=== PATIENT | male | born 1960 | race Caucasian/White ===

== ENCOUNTER 2017-12-20 17:57 | Emergency (ER) | payer MEDICAID ==
[~2017-12-20] VITALS: Ht 182.9 cm; Wt 91.6 kg
[2017-12-20] MEDS ORDERED: WARF2TAB57 PO (18:02)
[2017-12-20] MEDS ORDERED: BENA20TA9 PO (18:02)
--- NOTE | 2017-12-20 18:10 | NUR ---
MEILZA LEVIN AT BEDSIDE FOR EVAL.
[2017-12-20 18:47] LABS: BASOPHILS # (AUTO) 0.1 /CMM (0.0-0.2); BASOPHILS % (AUTO) 1.1 % (0.0-2.0); EOSINOPHILS % (AUTO) 1.5 % (0.0-6.0); HEMATOCRIT 36 % (39-51); HEMOGLOBIN 11.9 g/dL (13.5-17.5); LYMPHOCYTES # (AUTO) 1.5 /CMM (0.8-4.8); LYMPHOCYTES % (AUTO) 29.7 % (20.0-44.0); MEAN CORPUSCULAR HEMOGLOBIN 31 PG (26.0-33.0); MEAN CORPUSCULAR HGB CONC 33 g/dl (31.0-36.0); MEAN CORPUSCULAR VOLUME 94 fL (80-96); MONOCYTES # (AUTO) 0.4 /CMM (0.1-1.30); MONOCYTES % (AUTO) 7.6 % (2.0-12.0); NEUTROPHILS # (AUTO) 2.8 /CMM (1.8-8.9); NEUTROPHILS % (AUTO) 60.1 % (43.0-81.0); PLATELET COUNT (AUTO) 205 /CMM (150-450); RDW COEFFICIENT OF VARIATION 15.2 (11.5-15.0); RED BLOOD CELL COUNT(AUTO) 3.84 MIL/uL (4.5-6.0); WHITE BLOOD COUNT (AUTO) 4.9 K/uL (4.3-11.0)
[2017-12-20 18:58] LABS: CALCIUM, SERUM 8.8 mg/dL (8.5-10.1); CREATININE 1.6 mg/dL (0.6-1.3); POTASSIUM 3.5 mmol/L (3.5-5.1)
[2017-12-20 19:04] LABS: INR 4.94 (0.85-1.15)
--- NOTE | 2017-12-20 19:31 | NUR ---
PT RETURN FROM CT.
[2017-12-20] MEDS ORDERED: PHYTONADIONE 5 MG TABLET ONE (19:48)
[2017-12-20] MEDS ORDERED: PHYTONADIONE 5 MG TABLET PO ONE (20:00)
--- NOTE | 2017-12-20 20:34 | NUR ---
pt ok to discharge per brian edwards. Patient discharged to home in stable condition. Written and verbal after care instructions given. Patient verbalizes understanding of instruction.Patient is awake and alert to self, day, and place. pt ambulatory with a steady gait with cane
[2017-12-20 20:42] VITALS: BP 121/74
== END 2017-12-20 20:36 | disposition home or self-care (01) ==
LOC: ER 17:58
DX: F10.129 Alcohol abuse with intoxication, unspecified (principal); R79.1 Abnormal coagulation profile; I10 Essential (primary) hypertension; Z95.2 Presence of prosthetic heart valve; Z60.2 Problems related to living alone; Z79.899 Other long term (current) drug therapy; Z79.01 Long term (current) use of anticoagulants; Y90.6 Blood alcohol level of 120-199 mg/100 ml
CPT/HCPCS: 36415; 70450; 74150; 80048; 85025; 85730; 99285; A4606; Z7610

== ENCOUNTER 2018-05-03 17:31 | Emergency (ER) | payer MEDICAID ==
[~2018-05-03] VITALS: Ht 170.2 cm; Wt 91.2 kg
[~2018-05-03 17:31] MED LIST: BENA20TA9 PO; WARF2TAB57 PO
--- NOTE | 2018-05-03 17:45 | NUR ---
PT BIB SELF. COMPLAINING OF HAVING FLU LIKE SYMPTOMS FOR 2 DAYS. NO SOB NOTED. NO ACUTE DISTRESS AT THIS TIME. AWAITING MD WATERS.
[2018-05-03] MEDS ORDERED: IV NS 0.9% 1,000 ML BAG IV ONE (18:00)
[2018-05-03 18:18] LABS: BASOPHILS % (AUTO) 1.1 % (0.0-2.0); EOSINOPHILS % (AUTO) 1.5 % (0.0-6.0); HEMATOCRIT 40 % (39-51); HEMOGLOBIN 13.1 g/dL (13.5-17.5); LYMPHOCYTES # (AUTO) 1.2 /CMM (0.8-4.8); MEAN CORPUSCULAR HGB CONC 33 g/dl (31.0-36.0); MEAN CORPUSCULAR VOLUME 93 fL (80-96); MONOCYTES # (AUTO) 0.5 /CMM (0.1-1.30); NEUTROPHILS # (AUTO) 2.9 /CMM (1.8-8.9); NEUTROPHILS % (AUTO) 62.4 % (43.0-81.0); PLATELET COUNT (AUTO) 156 /CMM (150-450); RED BLOOD CELL COUNT(AUTO) 4.26 MIL/uL (4.5-6.0); WHITE BLOOD COUNT (AUTO) 4.6 K/uL (4.3-11.0)
[2018-05-03 18:27] LABS: CALCIUM, SERUM 8.6 mg/dL (8.5-10.1); CREATININE 1.2 mg/dL (0.6-1.3); POTASSIUM 3.4 mmol/L (3.5-5.1)
[2018-05-03] MEDS ORDERED: ONDANSETRON HCL/PF 4 MG/2 ML VIAL IV ONE (18:30)
[2018-05-03] MEDS ORDERED: MORPHINE SULFATE INJ 10 MG/ML DISP.SYRIN IV ONE (18:30)
[2018-05-03 18:33] LABS: ALBUMIN 3.2 g/dL (3.4-5.0); BILIRUBIN,DIRECT 0.2 mg/dL (0.0-0.2); BILIRUBIN,TOTAL 0.5 mg/dL (0.2-1.0); TOTAL PROTEIN, SERUM 7.8 g/dL (6.4-8.2)
[2018-05-03] MEDS ORDERED: ONDANSETRON HCL/PF 4 MG/2 ML VIAL ONE (18:42)
[2018-05-03] MEDS ORDERED: MORPHINE SULFATE INJ 4 MG/ML DISP.SYRIN ONE (18:42)
[2018-05-03 18:57] LABS: ALCOHOL, BLOOD 129 mg/dL (0-0); B-TYPE NATRIURETIC PEPTIDE 305 PG/ML (0-125)
--- NOTE | 2018-05-03 19:04 | NUR ---
PT UNABLE TO URINATE AT THIS TIME. WILL TRY AGAIN.
[2018-05-03 19:16] LABS: APPEARANCE,URINE Clear (CLEAR); BILIRUBIN,URINE SMALL (NEGATIVE); BLOOD, URINE Negative Ery/uL (NEGATIVE); COLOR,URINE Yellow (YELLOW); KETONES,URINE 15 (NEGATIVE); LEUKOCYTE ESTERASE ,URINE Negative (NEGATIVE); NITRITE, URINE Negative (NEGATIVE); PH,URINE 5.5 (5.0-8.0); PROTEIN,URINE 100 mg/dl (NEGATIVE); UGLUCOSE Negative (NEGATIVE)
[2018-05-03 19:20] LABS: BACTERIA,URINE Rare /HPF (None Seen); RBC,URINE 0-2 /HPF (0-2); SQUAMOUS EPITHELIAL CELL,UR Few /HPF (None Seen); WBC,URINE 0-2 /HPF (0-3)
[2018-05-03] MEDS ORDERED: WARFARIN SODIUM 1 MG TABLET ONE (19:29)
[2018-05-03] MEDS ORDERED: WARFARIN SODIUM 1 MG TABLET PO ONE (19:30)
--- NOTE | 2018-05-03 19:30 | NUR ---
Patient discharged to home in stable condition. Written and verbal after care instructions given. Patient verbalizes understanding of instruction. IV removed. Catheter intact and site benign. Pressure and 4x4 applied to site. No bleeding noted. Pt ambulatory with a steady gait
[2018-05-03 19:53] VITALS: BP 138/82
== END 2018-05-03 19:53 | disposition home or self-care (01) ==
LOC: ER 17:35
DX: R05 Cough (principal); F10.129 Alcohol abuse with intoxication, unspecified; E87.6 Hypokalemia; R09.89 Other specified symptoms and signs involving the circulatory and respiratory systems; G89.29 Other chronic pain; M79.605 Pain in left leg; R79.1 Abnormal coagulation profile; R79.89 Other specified abnormal findings of blood chemistry; I10 Essential (primary) hypertension; F17.200 Nicotine dependence, unspecified, uncomplicated; I73.9 Peripheral vascular disease, unspecified; Z95.2 Presence of prosthetic heart valve; Z98.890 Other specified postprocedural states; Z60.2 Problems related to living alone; Z79.01 Long term (current) use of anticoagulants; Z79.899 Other long term (current) drug therapy; Z86.73 Personal history of transient ischemic attack (TIA), and cerebral infarction without residual deficits; Y90.6 Blood alcohol level of 120-199 mg/100 ml
CPT/HCPCS: 36415; 71045; 80048; 80076; 81001; 83605; 83880; 84484; 85025; 85730; 87040 ×2; 87086; 87804 ×2; 93005; 96374; 96375; 99284; A4606; G0480; J2270; J2405; J7030; Z7610; 81000-TC; 87400

== ENCOUNTER 2019-03-16 16:00 | Emergency (ER) | payer MEDICAID ==
[~2019-03-16] VITALS: Ht 170.2 cm; Wt 85.7 kg
--- NOTE | 2019-03-16 16:15 | NUR ---
BIB ra 58 YEAR OLD MALE found on street altered with etoh noted on breath Requesting INR level and med refill for coumadin; last dose 2days ago. ALERT TO TACTILE STIMULI. ALCOHOL NOTED ON PATIENT BREATH. SKIN INTACT, WAITING TO BE SEEN BY
[2019-03-16] MEDS ORDERED: Thiamine 100 MG in IV D5W 50 ML IV SCH (16:30)
[2019-03-16] MEDS ORDERED: IV NS 0.9% 500 ML BAG IV ONE (16:30)
--- NOTE | 2019-03-16 16:33 | NUR ---
THIAMINE MEDS ORDERED FROM PHARM
[2019-03-16 16:44] LABS: CALCIUM, SERUM 8.5 mg/dL (8.5-10.1); CREATININE 1.5 mg/dL (0.6-1.3); POTASSIUM 3.6 mmol/L (3.5-5.1)
[2019-03-16 16:45] LABS: BASOPHILS # (AUTO) 0.1 /CMM (0.0-0.2); BASOPHILS % (AUTO) 1.1 % (0.0-2.0); EOSINOPHILS % (AUTO) 1.9 % (0.0-6.0); HEMATOCRIT 38 % (39-51); HEMOGLOBIN 12.8 g/dL (13.5-17.5); LYMPHOCYTES # (AUTO) 1.7 /CMM (0.8-4.8); LYMPHOCYTES % (AUTO) 28.5 % (20.0-44.0); MEAN CORPUSCULAR HGB CONC 33 g/dl (31.0-36.0); MEAN CORPUSCULAR VOLUME 92 fL (80-96); MONOCYTES # (AUTO) 0.5 /CMM (0.1-1.30); NEUTROPHILS # (AUTO) 3.5 /CMM (1.8-8.9); NEUTROPHILS % (AUTO) 59.5 % (43.0-81.0); PLATELET COUNT (AUTO) 197 /CMM (150-450); RED BLOOD CELL COUNT(AUTO) 4.17 MIL/uL (4.5-6.0)
[2019-03-16 16:49] LABS: ALBUMIN 3.6 g/dL (3.4-5.0); BILIRUBIN,DIRECT 0.2 mg/dL (0.0-0.2); BILIRUBIN,TOTAL 0.4 mg/dL (0.2-1.0); TOTAL PROTEIN, SERUM 7.9 g/dL (6.4-8.2)
--- NOTE | 2019-03-16 17:07 | NUR ---
RECEIVED FROM [address] PT HAS INR OF 5.31. DR. ROBLES NOTIFIED
[2019-03-16 17:24] LABS: BAND % (MANUAL) 3 % (0.0-5.0); LYMPHOCYTES % (MANUAL) 26 % (16-48); MONOCYTES % (MANUAL) 11 % (0-11.0); NEUTROPHILS % (MANUAL) 60 (42-76)
[2019-03-16 18:01] VITALS: BP 114/56
--- NOTE | 2019-03-16 18:02 | NUR ---
PATIENT WITHOUT SIGNING PAPERWORK. JS STATED HE NEEDED TO GET HOME. HIS HOME IS "WIDE OPEN". MD MADE AWARE PATIENT LEFT AMA
== END 2019-03-16 18:03 | disposition left against medical advice (07) ==
LOC: ER 16:03
DX: F10.129 Alcohol abuse with intoxication, unspecified (principal); R79.1 Abnormal coagulation profile; I10 Essential (primary) hypertension; Z86.73 Personal history of transient ischemic attack (TIA), and cerebral infarction without residual deficits; Z98.890 Other specified postprocedural states; Z60.2 Problems related to living alone; Z79.899 Other long term (current) drug therapy; Z79.01 Long term (current) use of anticoagulants; Y90.7 Blood alcohol level of 200-239 mg/100 ml
CPT/HCPCS: 36415; 80048; 80076; 80307; 83690; 83735; 85025; 85730; 96365; 99283; J3411; J7040; J7060; G0480

== ENCOUNTER 2019-03-17 21:58 | Emergency (ER) | payer MEDICAID ==
[~2019-03-17] VITALS: Ht 170.2 cm; Wt 85.7 kg
--- NOTE | 2019-03-17 22:00 | NUR ---
PT BIBRA C/O ETOH. PT SLEEPING UPON ARRIVAL, AROUSABLE TO VOICE. PT RESPIRATIONS EVEN AND UNLABORED. PT PUT ON THE CVT TECH AND PULSE OX.
--- NOTE | 2019-03-18 02:17 | NUR ---
PT RESTING IN THE BED, NAD NOTED. WILL CONTINUE TO MONITOR.
--- NOTE | 2019-03-18 02:58 | NUR ---
PT ASLEEP, NO ACUTE DISTRESS NOTED, RESP EVEN AND UNLABORED. NO PAIN OR DISCOMFORT NOTED. CALL LIGHT WITHIN REACH WILL CONTINUE TO MONITOR PT.
--- NOTE | 2019-03-18 03:28 | NUR ---
PT AWAKE AND AXO4. PT AMBULATORY WITH STEADY GAIT.
--- NOTE | 2019-03-18 04:06 | NUR ---
Patient discharged to home in stable condition. Written and verbal after care instructions given. Patient verbalizes understanding of instruction.
[2019-03-18 04:08] VITALS: BP 110/68
== END 2019-03-18 04:09 | disposition home or self-care (01) ==
LOC: ER 21:59
DX: F10.129 Alcohol abuse with intoxication, unspecified (principal); I10 Essential (primary) hypertension; Z86.73 Personal history of transient ischemic attack (TIA), and cerebral infarction without residual deficits; Z98.890 Other specified postprocedural states; Z60.2 Problems related to living alone; Z79.01 Long term (current) use of anticoagulants; Z79.899 Other long term (current) drug therapy; Y90.9 Presence of alcohol in blood, level not specified

== ENCOUNTER 2019-06-14 16:32 | Emergency (ER) | payer MEDICAID ==
[~2019-06-14] VITALS: Ht 170.2 cm; Wt 86.2 kg
[2019-06-14 16:32] VITALS: BP 145/84
--- NOTE | 2019-06-14 19:18 | NUR ---
pt called to rm, no answer.
--- NOTE | 2019-06-14 19:43 | NUR ---
2nd call for pt, no answer.
--- NOTE | 2019-06-14 20:01 | NUR ---
3RD CALL FOR PT, NO ANSWER. PT LWBS.
== END 2019-06-14 20:03 | disposition left against medical advice (07) ==
LOC: ER 16:43
DX: M79.605 Pain in left leg (principal); M79.604 Pain in right leg; Z53.21 Procedure and treatment not carried out due to patient leaving prior to being seen by health care provider

== ENCOUNTER 2021-10-12 19:14 | Inpatient (IN) | payer MEDICAID ==
[~2021-10-12] VITALS: Ht 167.6 cm; Wt 51.3 kg
[2021-10-12] MEDS ORDERED: VANCOMYCIN 1 GM in IV D5W 250 ML IV ONE (19:30)
[2021-10-12] MEDS ORDERED: CEFEPIME 1 GM in IV D5W 50 ML IV ONE (19:30)
[2021-10-12] MEDS ORDERED: LABE200T5 GT (19:34)
[2021-10-12] MEDS ORDERED: LEVE500T9 GT (19:34)
[2021-10-12] MEDS ORDERED: MULT-447 GT (19:34)
[2021-10-12] MEDS ORDERED: FERR300L GT (19:34)
[2021-10-12] MEDS ORDERED: SENN-261 GT (19:34)
[2021-10-12] MEDS ORDERED: GUAI100S11 GT (19:34)
[2021-10-12] MEDS ORDERED: IPRA3AMP23 IH (19:34)
[2021-10-12] MEDS ORDERED: ONDA4TAB5 GT (19:34)
[2021-10-12] MEDS ORDERED: ZINC220T3 GT (19:34)
[2021-10-12] MEDS ORDERED: ACET-868 GT (19:34)
[2021-10-12] MEDS ORDERED: DOCU50LI GT (19:34)
[2021-10-12] MEDS ORDERED: ACET-2605 GT (19:34)
[2021-10-12] MEDS ORDERED: THIA100T74 GT (19:34)
[2021-10-12] MEDS ORDERED: AMLO-213 GT (19:34)
[2021-10-12] MEDS ORDERED: PYRI25TA3 GT (19:34)
[2021-10-12] MEDS ORDERED: AMIN30LI2 GT (19:34)
[2021-10-12] MEDS ORDERED: FAMO20TA8 GT (19:34)
[2021-10-12] MEDS ORDERED: OLAN2.5T3 GT (19:34)
[2021-10-12] MEDS ORDERED: CRAN425C6 GT (19:34)
[2021-10-12] MEDS ORDERED: HYDR-4209 GT (19:34)
[2021-10-12] MEDS ORDERED: GABA-532 GT (19:34)
[2021-10-12] MEDS ORDERED: ASCO-352 GT (19:34)
[2021-10-12] MEDS ORDERED: ISON300T27 GT (19:34)
[2021-10-12] MEDS ORDERED: ENOX40DI SQ (19:34)
[2021-10-12] MEDS ORDERED: MAGN400O6 GT (19:34)
[2021-10-12] MEDS ORDERED: HYDR-4303 GT (19:34)
--- NOTE | 2021-10-12 19:45 | NUR ---
RISHABH WORK COLLECTED SENT TO LAB
--- NOTE | 2021-10-12 19:56 | NUR ---
URINE COLLECTED SENT TO LAB
--- NOTE | 2021-10-12 19:56 | NUR ---
COVID SWAB COLLECTED SENT TO LAB
--- NOTE | 2021-10-12 19:57 | NUR ---
F/C INSERTED Fr 14, CLEAR YELLOW URINE OUTPUT 110CC
[2021-10-12 20:02] LABS: BILIRUBIN,URINE NEGATIVE (NEGATIVE); COLOR,URINE YELLOW (YELLOW); LEUKOCYTE ESTERASE ,URINE NEGATIVE (NEGATIVE); NITRITE, URINE NEGATIVE (NEGATIVE); PH,URINE 5.5 (5.0-8.0); PROTEIN,URINE 30 mg/dl (NEGATIVE); UGLUCOSE NEGATIVE (NEGATIVE); UROBILINOGEN,URINE 0.2 EU/dL (0.2)
--- NOTE | 2021-10-12 20:10 | NUR ---
DR GARRETT ON THE PHONE WITH YESSENIA, PATIENT'S SISTER
[2021-10-12 20:17] LABS: BACTERIA,URINE RARE /HPF (None Seen); RBC,URINE 0-2 /HPF (0-2); SQUAMOUS EPITHELIAL CELL,UR 0-2 /HPF (None Seen); URINE AMORPHOUS URATE Few /HPF (None Seen); WBC,URINE 0-2 /HPF (0-3)
[2021-10-12 20:17] LABS: BASOPHILS % (AUTO) 0.3 % (0.0-2.0); EOSINOPHILS % (AUTO) 0.1 % (0.0-6.0); HEMATOCRIT 28 % (39-51); HEMOGLOBIN 9.1 g/dL (13.5-17.5); LYMPHOCYTES # (AUTO) 0.8 K/uL (0.8-4.8); LYMPHOCYTES % (AUTO) 13.3 % (20.0-44.0); MEAN CORPUSCULAR HGB CONC 33 g/dl (31.0-36.0); MEAN CORPUSCULAR VOLUME 92 fL (80-96); MONOCYTES # (AUTO) 0.5 K/uL (0.1-1.30); MONOCYTES % (AUTO) 8.7 % (2.0-12.0); NEUTROPHILS # (AUTO) 4.4 K/uL (1.8-8.9); NEUTROPHILS % (AUTO) 77.6 % (43.0-81.0); PLATELET COUNT (AUTO) 212 K/uL (150-450); RED BLOOD CELL COUNT(AUTO) 3.04 MIL/uL (4.5-6.0); WHITE BLOOD COUNT (AUTO) 5.7 K/uL (4.3-11.0)
[2021-10-12 20:25] LABS: ALANINE AMINOTRANSFERASE 37 U/L (12-78); ALBUMIN 2.2 g/dL (3.4-5.0); ALKALINE PHOSPHATASE 78 U/L (46-116); ASPARTATE AMINOTRANSFERASE 70 U/L (15-37); BILIRUBIN,DIRECT 0.2 mg/dL (0.0-0.2); BILIRUBIN,TOTAL 0.4 mg/dL (0.2-1.0); CALCIUM, SERUM 9.4 mg/dL (8.5-10.1); CARBON DIOXIDE 33 mmol/L (21-32); CHLORIDE 113 mmol/L (98-107); CREATININE 1.3 mg/dL (0.6-1.3); GLUCOSE 146 mg/dL (74-106); POTASSIUM 4.5 mmol/L (3.5-5.1); SODIUM SERUM 152 mmol/L (136-145); TOTAL PROTEIN, SERUM 8.4 g/dL (6.4-8.2); UREA NITROGEN, BLOOD 46 mg/dL (7-18)
[2021-10-12 20:33] LABS: ABG BASE EXCESS 5.6 mmol/L; ABG PCO2 45.2 mmHg (35.0-45.0); ABG PH 7.445 (7.350-7.450); ABG PO2 62.8 mmHg (75.0-100.0); COHb 0.3 % (0.5-1.5); MetHb 0.2 % (0.0-1.5); O2Hb 90.5 % (94.0-97.0); SITE, ABG Right Radial; VENT MODE, BG 15L NRB
[2021-10-12] MEDS ORDERED: KETAMINE HCL (500MG/10ML) 50 MG/ML VIAL ONE (20:43)
--- NOTE | 2021-10-12 20:50 | NUR ---
ORDER PER ER LAW ROCURONIUM 60 MG IVP ketamine 100 MG IVP CARRIED OUT
--- NOTE | 2021-10-12 20:52 | NUR ---
PT GOT INTUBATED BY DR GARRETT. CALLED FIELD SERVICE SPECIALIST FOR PICC LINE INSERTION.
--- NOTE | 2021-10-12 20:56 | NUR ---
RM 252
[2021-10-12] MEDS ORDERED: NOREPINEPHRINE 8 MG in IV NS 0.9% 250 ML IV ONE (21:00)
--- NOTE | 2021-10-12 21:08 | NUR ---
LEVO DRIP STARTED AT 0.03 ML/HR
--- NOTE | 2021-10-12 21:15 | NUR ---
rt at pt bedside for abg results. pt had high resp rate and decreased spo2 aloc. er nursing staff notified and pt ventilated via ambu bag. prepared for intubation per ER physician verbal order. pt intubated with 7.5 ett@24cm. positive color change, mist in the tube, bilateral chest rise. pt placed on ventalator on settings ac 22 500 100% +5. ett secured via anchorfast. suctioned a large amount of thick yellow secretions. Addendum: 10/13/21 at 0026 by ELE GAMBLE RT Amended: Links added.
--- NOTE | 2021-10-12 22:12 | NUR ---
REPORT GIVEN TO CHARGE NURSE
--- NOTE | 2021-10-12 22:50 | NUR ---
ORDER PER ER LAW ROCURONIUM 60 MG IVP ketamine 100 MG IVP CARRIED OUT
--- NOTE | 2021-10-12 23:11 | NUR ---
Miriam mary in [facility] - 10/12/21 at 2312 by GINI LAC 3.3 MD WILL BE NOTIFIED.
--- NOTE | 2021-10-12 23:12 | NUR ---
IBIS 3.3 MD WILL BE NOTIFIED.
--- NOTE | 2021-10-12 23:13 | NUR ---
JEAN-PAUL PELAEZ NP MADE AWARE OF THE LACTIC ACID LEVEL.
[2021-10-12] MEDS ORDERED: IV NS 0.9% 1,000 ML IV PRN (23:30)
[2021-10-12] MEDS ORDERED: ENOXAPARIN SODIUM 40 MG/0.4 ML DISP.SYRIN SQ SCH (23:30)
[2021-10-12] MEDS ORDERED: ONDANSETRON HCL/PF 4 MG/2 ML VIAL IVP PRN (23:30)
[2021-10-12] MEDS ORDERED: NOREPINEPHRINE 8 MG in IV NS 0.9% 242 ML IV PRN (23:30)
[2021-10-12] MEDS ORDERED: PROPOFOL 10MG/ML 50ML 50 ML IV PRN (23:30)
--- NOTE | 2021-10-12 23:45 | NUR ---
PATIENT TRANSFERRED UNDER ACLS, RN AND RT TRANSPORT,
[2021-10-13] VITALS (94 sets, daily range): BP systolic 69–126; BP diastolic 52–77
[2021-10-13] MEDS ORDERED: PIPERACILLIN /TAZOBACTAM 3.375 G VIAL IV ONE ×2 (00:18→05:32)
[2021-10-13] MEDS: LEVETIRACETAM SOL (5 ML) 100 MG/ML UDC GT SCH ×3 (00:23→20:03)
[2021-10-13] MEDS: ZOSYN IVPB 3.375 G in IV D5W 50ml IV SCH ×2 (00:23→05:52)
[2021-10-13 00:39] LABS: ABG BASE EXCESS 4.6 mmol/L; ABG OXYGEN SATURATION 92.1 % (92.0-98.5); ABG PCO2 48.6 mmHg (35.0-45.0); ABG PH 7.408 (7.350-7.450); ABG PO2 69.6 mmHg (75.0-100.0); AaDO2 594.8 mmHg; COHb 0.3 % (0.5-1.5); MetHb 0.3 % (0.0-1.5); O2Hb 91.5 % (94.0-97.0); PEEP,BG 5 cm H2O; SITE, ABG Right Radial; VENT MODE, BG AC 22 500 100% +5; VT, ABG 500 mL
[2021-10-13] MEDS: ACETAMINOPHEN 325 MG TABLET PO PRN ×2 (00:41→20:03)
[2021-10-13] MEDS ORDERED: NOREPINEPHRINE 8MG/250ML RTU 250 ML IV ONE (03:21)
[2021-10-13] MEDS: NOREPINEPHRINE 8 MG in IV NS 0.9% 242 ML IV PRN ×5 (04:03→20:04)
[2021-10-13 04:24] LABS: BASOPHILS % (AUTO) 0.1 % (0.0-2.0); HEMATOCRIT 28 % (39-51); HEMOGLOBIN 9.1 g/dL (13.5-17.5); LYMPHOCYTES # (AUTO) 0.6 K/uL (0.8-4.8); LYMPHOCYTES % (AUTO) 6.7 % (20.0-44.0); MEAN CORPUSCULAR HGB CONC 33 g/dl (31.0-36.0); MEAN CORPUSCULAR VOLUME 91 fL (80-96); MONOCYTES # (AUTO) 0.5 K/uL (0.1-1.30); MONOCYTES % (AUTO) 5.8 % (2.0-12.0); NEUTROPHILS # (AUTO) 7.9 K/uL (1.8-8.9); NEUTROPHILS % (AUTO) 87.4 % (43.0-81.0); PLATELET COUNT (AUTO) 232 K/uL (150-450); RED BLOOD CELL COUNT(AUTO) 3.03 MIL/uL (4.5-6.0); WHITE BLOOD COUNT (AUTO) 9.1 K/uL (4.3-11.0)
[2021-10-13 04:44] LABS: CREATININE 1.3 mg/dL (0.6-1.3); MAGNESIUM 2.3 mg/dL (1.8-2.4); PHOSPHORUS 3.7 mg/dL (2.5-4.9); POTASSIUM 4.2 mmol/L (3.5-5.1)
--- NOTE | 2021-10-13 07:30 | NUR ---
RN OPENING NOTE PT RECEIVED IN BED. PT IS ON MECHANICAL VENT WITH ALL PRESCRIBED SETTINGS TOLERATING WELL WITH NO SIGNS OF LABORED BREATHING OR DISTRESS SAT 100%. PT IS LETHARGIC AND IS NOT ON SEDATION AT THIS TIME AND HAS BILATERAL SOFT WRIST RESTRAINTS. GTUBE IS IN PLACE AND CLAMPED. FC IS IN PLACE DRAINING URINE TO GRAVITY. IV ACCESS L AC; R AC; R UA PICC DOUBLE LUMEN INFUSING WITH NS@75ML/HR AND LEVO @0.3MCG/HR. BED IS LOCKED IN LOWEST POSITION X2 BED RAILS UP AND ALL HOSPITAL SAFETY MEASURES ARE IN PLACE. WILL CONTINUE TO MONITOR THIS SHIFT.
[2021-10-13] MEDS ORDERED: ROCURONIUM BROMIDE 50 MG/5 ML IV ONE (08:25)
[2021-10-13] MEDS: ZINC SULFATE 220 MG CAPSULE PO SCH (08:38)
[2021-10-13] MEDS: ASCORBIC ACID 500 MG TABLET GT SCH (08:38)
[2021-10-13] MEDS: MULTIVITAMINS,THERAGRAN 1 UDTAB TABLET GT SCH (08:39)
[2021-10-13] MEDS: THIAMINE HCL 100 MG TABLET GT SCH (08:39)
[2021-10-13] MEDS: PANTOPRAZOLE 40 MG VIAL IV SCH (08:39)
[2021-10-13] MEDS: FERROUS SULFATE UDC 300 MG/5 ML UDC GT SCH (08:39)
[2021-10-13] MEDS: ISONIAZID (300 MG) 300 MG TABLET GT SCH (08:39)
[2021-10-13] MEDS: PYRIDOXINE HCL 50 MG TABLET PO SCH (08:39)
[2021-10-13] MEDS: DOCUSATE SODIUM LIQ 100 MG/10 ML UDC GT SCH (08:39)
[2021-10-13] MEDS: OLANZAPINE 2.5 MG TABLET GT SCH (08:39)
[2021-10-13] MEDS: PROSOURCE / PROSTAT (PYXIS) 30 ML UDC GT SCH (08:41)
[2021-10-13] MEDS: VANCOMYCIN 500 MG in IV D5W 100 ML IV SCH ×2 (09:03→21:53)
[2021-10-13] MEDS: ENOXAPARIN SODIUM 60 MG/0.6 ML DISP.SYRIN SQ SCH ×2 (09:08→20:04)
--- NOTE | 2021-10-13 09:08 | NUR ---
WOUND CARE CONSULT: PT UNSTABLE AT THIS TIME TO BE TURNED FOR SKIN ASSESSMENT. REVIEWED CHART, NURSING DOCUMENTATION AND PHOTOS WHICH INDICATE FOOT WOUNDS, RT HIP UNSTAGEABLE PRESSURE ULCER, LEFT HIP DEEP TISSUE INJURY IN EVOLUTION AND SACRAL DEEP TISSUE INJURY, ALL PRESENT ON ADMISSION. RECOMMENDATIONS MADE FOR SKIN PROTECTION. DISCUSSED WITH NURSING STAFF. PT IS ON GLENDA ISOFLEX LOW AIRLOSS BED. IN AGREEMENT WITH PLAN OF CARE. Addendum: 10/13/21 at 1028 [address] PINEDA WNDNU [address] MARADIAGA AND DR SANTIAGO NOTIFIED OF SURGICAL AND DPM CONSULT REQUESTS.
[2021-10-13] MEDS: IV NS 0.9% 250 ML IV PRN (09:25)
[2021-10-13] MEDS: Z GUARD REMEDY 4 OZ OINT TP SCH (09:30)
[2021-10-13] MEDS ORDERED: Z GUARD REMEDY 4 OZ OINT TP PRN (09:30)
[2021-10-13 10:14] LABS: ABG BASE EXCESS 4.2 mmol/L; ABG PCO2 34.6 mmHg (35.0-45.0); ABG PH 7.509 (7.350-7.450); ABG PO2 102.7 mmHg (75.0-100.0); AaDO2 142.7 mmHg; SITE, ABG Right Radial
[2021-10-13] MEDS: IV D5/0.45 NACL 1,000 ML IV PRN ×2 (10:44→23:47)
[2021-10-13] MEDS: PIPERACILLIN /TAZOBACTAM 3.375 G in IV D5W 100 ML IV SCH ×2 (11:05→19:02)
[2021-10-13] MEDS: PROPOFOL 100 ML IV PRN (12:24)
--- NOTE | 2021-10-13 12:24 | NUR ---
RN NOTE: SEDATION STARTED DIPRIVAN @5MCG/HR. PT AGITATED AND RR 30 AND TACHY. WILL CONTINUE TO MONITOR AND TITRATE PER PROTOCOL.
[2021-10-13] MEDS: JEVITY 1.2 CAL 1,000 ML BOTTLE GT PRN (16:54)
--- NOTE | 2021-10-13 19:12 | NUR ---
RN CLOSING NOTE PT IS IN BED AND ON MECHANICAL VENT WITH ALL PRESCRIBED SETTINGS TOLERATING WELL WITH NO SIGNS OF LABORED BREATHING OR DISTRESS SAT 98%. PT HAS BILATERAL SOFT WRIST RESTRAINTS. GTUBE IS IN PLACE INFUSING WITH JEVITY 1.2 @20ML/HR WITH GOAL OF 45ML/HR. FC IS IN PLACE DRAINING URINE TO GRAVITY -800ML. IV ACCESS L AC; R AC; R UA PICC DOUBLE LUMEN INFUSING WITH D5 1/2 NS@75ML/HR AND LEVO @0.1MCG/HR AND DIPRIVAN @10MCG/HR. BED IS LOCKED IN LOWEST POSITION X2 BED RAILS UP AND ALL HOSPITAL SAFETY MEASURES ARE IN PLACE. WILL ENDORSE TO CREDIT ADMINISTRATION SPECIALIST NURSE FOR SYBIL.
--- NOTE | 2021-10-13 19:50 | NUR ---
RT notes Pt received orally intubated w/ 7.5 ETT secured at 24cm at the lip line on [facility] vent on ordered settings AC mode, RR 18, VT 450, FIO2 30%, PEEP +5. No resp distress noted at this time. Airway patent and secured. CHEMICAL EDUCATOR done. Pt suctioned. Alarms set and audible. Vent plugged into red outlet. Ambubag at bedside. Will cont to monitor. Addendum: 10/13/21 at 2044 by EDGARDO GARCIA RT Amended: Links added.
[2021-10-13] MEDS ORDERED: ACETAMINOPHEN 650 MG/20.3 ML UDC NG ONE (20:30)
[2021-10-13] MEDS: SENNOSIDES 8.6 MG TABLET GT SCH (21:14)
[2021-10-14] VITALS (87 sets, daily range): BP systolic 84–145; BP diastolic 40–77
[2021-10-14] MEDS: PROPOFOL 100 ML IV PRN ×2 (03:29→17:56)
[2021-10-14] MEDS: PIPERACILLIN /TAZOBACTAM 3.375 G in IV D5W 100 ML IV SCH ×3 (03:30→19:09)
[2021-10-14] MEDS: ACETAMINOPHEN 325 MG TABLET PO PRN (03:46)
[2021-10-14 04:48] LABS: BASOPHILS % (AUTO) 0.2 % (0.0-2.0); EOSINOPHILS % (AUTO) 0.8 % (0.0-6.0); HEMATOCRIT 24 % (39-51); LYMPHOCYTES # (AUTO) 0.9 K/uL (0.8-4.8); LYMPHOCYTES % (AUTO) 10.1 % (20.0-44.0); MEAN CORPUSCULAR HGB CONC 33 g/dl (31.0-36.0); MEAN CORPUSCULAR VOLUME 93 fL (80-96); MONOCYTES # (AUTO) 0.5 K/uL (0.1-1.30); MONOCYTES % (AUTO) 6.1 % (2.0-12.0); NEUTROPHILS # (AUTO) 7.1 K/uL (1.8-8.9); NEUTROPHILS % (AUTO) 82.8 % (43.0-81.0); PLATELET COUNT (AUTO) 195 K/uL (150-450); WHITE BLOOD COUNT (AUTO) 8.6 K/uL (4.3-11.0)
[2021-10-14 05:19] LABS: MAGNESIUM 2.5 mg/dL (1.8-2.4); PHOSPHORUS 2.5 mg/dL (2.5-4.9); POTASSIUM 3.2 mmol/L (3.5-5.1)
--- NOTE | 2021-10-14 07:30 | NUR ---
RN OPENING NOTE PT IS IN BED AND ON MECHANICAL VENT WITH ALL PRESCRIBED SETTINGS TOLERATING WELL WITH NO SIGNS OF LABORED BREATHING OR DISTRESS SAT 98%. PT HAS BILATERAL SOFT WRIST RESTRAINTS. GTUBE IS IN PLACE INFUSING WITH JEVITY 1.2 @30ML/HR WITH GOAL OF 45ML/HR. FC IS IN PLACE DRAINING URINE TO GRAVITY. IV ACCESS L AC; R AC; R UA PICC DOUBLE LUMEN INFUSING WITH D5 1/2 NS@75ML/HR AND LEVO @0.1MCG/HR AND DIPRIVAN @20MCG/HR. BED IS LOCKED IN LOWEST POSITION X2 BED RAILS UP AND ALL HOSPITAL SAFETY MEASURES ARE IN PLACE. WILL CONTINUE TO MONITOR THIS SHIFT.
[2021-10-14] MEDS: NOREPINEPHRINE 8 MG in IV NS 0.9% 242 ML IV PRN (08:05)
[2021-10-14] MEDS: HYDROCORTISONE SOD SUCCINATE 100 MG/2 ML VIAL IV SCH ×3 (08:57→21:21)
[2021-10-14] MEDS: ISONIAZID (300 MG) 300 MG TABLET GT SCH (08:58)
[2021-10-14] MEDS: DOCUSATE SODIUM LIQ 100 MG/10 ML UDC GT SCH (08:58)
[2021-10-14] MEDS: OLANZAPINE 2.5 MG TABLET GT SCH (08:58)
[2021-10-14] MEDS: FERROUS SULFATE UDC 300 MG/5 ML UDC GT SCH (08:58)
[2021-10-14] MEDS: PANTOPRAZOLE 40 MG VIAL IV SCH (08:58)
[2021-10-14] MEDS: ZINC SULFATE 220 MG CAPSULE PO SCH (08:59)
[2021-10-14] MEDS: MULTIVITAMINS,THERAGRAN 1 UDTAB TABLET GT SCH (08:59)
[2021-10-14] MEDS: THIAMINE HCL 100 MG TABLET GT SCH (08:59)
[2021-10-14] MEDS: ASCORBIC ACID 500 MG TABLET GT SCH (08:59)
[2021-10-14] MEDS: LEVETIRACETAM SOL (5 ML) 100 MG/ML UDC GT SCH ×2 (08:59→21:21)
[2021-10-14] MEDS: PYRIDOXINE HCL 50 MG TABLET PO SCH (08:59)
[2021-10-14] MEDS: Z GUARD REMEDY 4 OZ OINT TP SCH (09:00)
[2021-10-14] MEDS: PROSOURCE / PROSTAT (PYXIS) 30 ML UDC GT SCH (09:01)
[2021-10-14] MEDS: POTASSIUM CHLORIDE 20 MEQ POWDER PACKET GT SCH ×2 (09:18→11:05)
[2021-10-14] MEDS: ENOXAPARIN SODIUM 60 MG/0.6 ML DISP.SYRIN SQ SCH ×2 (09:19→23:24)
[2021-10-14] MEDS: VANCOMYCIN 500 MG in IV D5W 100 ML IV SCH (09:20)
--- NOTE | 2021-10-14 12:54 | NUR ---
RN NOTE: MED SOLU-CORTEF SCHEDULED Q8H. LAST GIVEN AT 0900. PER PHARMACY, OK TO GIVE 1300 DOSE.
[2021-10-14] MEDS: IV D5/0.45 NACL 1,000 ML IV PRN (13:23)
[2021-10-14] MEDS: VANCOMYCIN 0.75 GM in IV D5W 250 ML IV SCH (17:10)
[2021-10-14] MEDS: MUPIROCIN OINT 2% 22 GM TUBE TP SCH (17:30)
[2021-10-14] MEDS ORDERED: VANCOMYCIN 0.75 GM in IV D5W 250 ML IV SCH (18:00)
[2021-10-14] MEDS: JEVITY 1.2 CAL 1,000 ML BOTTLE GT PRN (18:06)
--- NOTE | 2021-10-14 18:42 | NUR ---
RN CLOSING NOTE PT IS IN BED AND ON MECHANICAL VENT WITH ALL PRESCRIBED SETTINGS TOLERATING WELL WITH NO SIGNS OF LABORED BREATHING OR DISTRESS SAT 100%. PT HAS BILATERAL SOFT WRIST RESTRAINTS. GTUBE IS IN PLACE INFUSING WITH JEVITY 1.2 @30ML/HR WITH GOAL OF 45ML/HR. FC IS IN PLACE DRAINING URINE TO GRAVITY -800ML. IV ACCESS L AC; R AC; R UA PICC DOUBLE LUMEN INFUSING WITH D5 1/2 NS@75ML/HR AND LEVO @0.06MCG/HR AND DIPRIVAN @15MCG/HR. BED IS LOCKED IN LOWEST POSITION X2 BED RAILS UP AND ALL HOSPITAL SAFETY MEASURES ARE IN PLACE. WILL ENDORSE TO CULLED FRUIT PACKER NURSE FOR SYBIL.
--- NOTE | 2021-10-14 20:25 | NUR ---
LINUX DEVELOPER. INITIAL ASSESSMENT. RECEIVED THE PT REST IN BED. ORALLY INTUBATED. SEDATED WITH PROPOFOL. 15MCG/KG/MIN, LEVOPHED 0.06MCG/KG/MIN, JASEN SOFT WRIST RESTRAINT CHECKED AND RELEASED NO INJURY OR REDNESS NOTED. FC PATENT. IVF D5 1/2NS 75ML/H. HOB ELEVATYED. WILL CONTINUE TO MONITOR VITALS.
--- NOTE | 2021-10-14 20:53 | NUR ---
SPUTUM SAMPLE COLLECTED.
[2021-10-14] MEDS: SENNOSIDES 8.6 MG TABLET GT SCH (21:21)
[2021-10-15] VITALS (52 sets, daily range): BP systolic 63–148; BP diastolic 26–77
[2021-10-15] MEDS: IV D5/0.45 NACL 1,000 ML IV PRN ×2 (02:23→15:14)
--- NOTE | 2021-10-15 03:32 | NUR ---
agricultural chemist. am care given, remaining same vent settings tolerated well. sat 98%, no acute distress noted. drawing tracer showing nsr. iv rt upper arm picc line propofol 15mcg/kg/min, ivf d51/2ns @75ml/h. gt intact. feeding tolerated well. fc patent. urine draininh. hob elevated. turn and reposition q2h. will continue to monitor vitals
[2021-10-15] MEDS: IV NS 0.9% 250 ML IV PRN (04:35)
[2021-10-15] MEDS: HYDROCORTISONE SOD SUCCINATE 100 MG/2 ML VIAL IV SCH ×3 (04:36→20:25)
[2021-10-15] MEDS: PIPERACILLIN /TAZOBACTAM 3.375 G in IV D5W 100 ML IV SCH ×3 (04:36→20:15)
[2021-10-15] MEDS: PROPOFOL 100 ML IV PRN (05:15)
[2021-10-15] MEDS: MUPIROCIN OINT 2% 22 GM TUBE TP SCH ×2 (05:16→16:51)
[2021-10-15 05:18] LABS: BASOPHILS % (AUTO) 0.1 % (0.0-2.0); HEMATOCRIT 24 % (39-51); HEMOGLOBIN 7.7 g/dL (13.5-17.5); LYMPHOCYTES # (AUTO) 0.4 K/uL (0.8-4.8); LYMPHOCYTES % (AUTO) 6.4 % (20.0-44.0); MEAN CORPUSCULAR HGB CONC 33 g/dl (31.0-36.0); MEAN CORPUSCULAR VOLUME 93 fL (80-96); MONOCYTES # (AUTO) 0.2 K/uL (0.1-1.30); MONOCYTES % (AUTO) 3.1 % (2.0-12.0); NEUTROPHILS # (AUTO) 6.4 K/uL (1.8-8.9); NEUTROPHILS % (AUTO) 90.4 % (43.0-81.0); PLATELET COUNT (AUTO) 174 K/uL (150-450); RED BLOOD CELL COUNT(AUTO) 2.55 MIL/uL (4.5-6.0)
[2021-10-15] MEDS: VANCOMYCIN 0.75 GM in IV D5W 250 ML IV SCH ×2 (05:19→17:32)
[2021-10-15 05:40] LABS: ALBUMIN 1.7 g/dL (3.4-5.0); BILIRUBIN,TOTAL 0.3 mg/dL (0.2-1.0); TOTAL PROTEIN, SERUM 7.5 g/dL (6.4-8.2)
[2021-10-15 05:44] LABS: CALCIUM, SERUM 7.3 mg/dL (8.5-10.1); CREATININE 1.3 mg/dL (0.6-1.3); MAGNESIUM 1.8 mg/dL (1.8-2.4); PHOSPHORUS 1.6 mg/dL (2.5-4.9); POTASSIUM 4.1 mmol/L (3.5-5.1)
--- NOTE | 2021-10-15 07:10 | NUR ---
BILLET CHECKER Bedside report taken from [facility] nurse Dawna RASHID. pt sedated on propofol and intubated on ac vent setting with fio2 30%, pt tolerating well. cecelia lung sounds coarse. pt does not open eyes or follow commands but w/d to painful stimuli in bue and ble. perrla. pt NSR on monitor, bue and ble pulses present. pt has peg, site clean and dry. pt on jevity 1.2 @ 45 ml/hr tolerating well, residuals 0 ml. bowel sounds present. pt has eduardo intact and draining baldemar clear urine. pt has multiple wounds see chart for photos, dressings clean dry and intact. all lines traced. all drips verified. safety measures in place. will continue to monitor.
[2021-10-15] MEDS: ISONIAZID (300 MG) 300 MG TABLET GT SCH (08:09)
[2021-10-15] MEDS: DOCUSATE SODIUM LIQ 100 MG/10 ML UDC GT SCH (08:09)
[2021-10-15] MEDS: FERROUS SULFATE UDC 300 MG/5 ML UDC GT SCH (08:09)
[2021-10-15] MEDS: PROSOURCE / PROSTAT (PYXIS) 30 ML UDC GT SCH (08:10)
[2021-10-15] MEDS: LEVETIRACETAM SOL (5 ML) 100 MG/ML UDC GT SCH ×2 (08:10→20:25)
[2021-10-15] MEDS: MULTIVITAMINS,THERAGRAN 1 UDTAB TABLET GT SCH (08:11)
[2021-10-15] MEDS: ASCORBIC ACID 500 MG TABLET GT SCH (08:14)
[2021-10-15] MEDS: OLANZAPINE 2.5 MG TABLET GT SCH (08:14)
[2021-10-15] MEDS: PANTOPRAZOLE 40 MG VIAL IV SCH (08:14)
[2021-10-15] MEDS: PYRIDOXINE HCL 50 MG TABLET PO SCH (08:14)
[2021-10-15] MEDS: THIAMINE HCL 100 MG TABLET GT SCH (08:14)
[2021-10-15] MEDS: ZINC SULFATE 220 MG CAPSULE PO SCH (08:14)
[2021-10-15] MEDS: ENOXAPARIN SODIUM 60 MG/0.6 ML DISP.SYRIN SQ SCH (08:24)
[2021-10-15] MEDS: Z GUARD REMEDY 4 OZ OINT TP SCH (08:26)
--- NOTE | 2021-10-15 08:45 | NUR ---
FREIGHT CAR CLEANER DELTA SYSTEM Dr Meléndez at bedside assessing pt and updated on pt status. propofol weaned off for sedation vacation and vent weaning trial per protocol. willl continue to monitor.
--- NOTE | 2021-10-15 09:25 | NUR ---
PLACED ON SIMV MODE. PER MD ORDER. PT TOLERATING CHANGES, ALARMS SET AND AUDIBLE
--- NOTE | 2021-10-15 09:25 | NUR ---
DIRECTOR CHILD ABUSE THERAPY Propofol off pt placed on weaning trial. pt opens eyes, tolerating well. vitals stable. will continue to monitor.
--- NOTE | 2021-10-15 11:12 | NUR ---
ELECTRON BEAM PHOTO MASK MAKER Dr Meléndez at bedside assessing pt and updated on pt status. md aware that pt on weaning trial, pt tolerating well. Per md will not restart sedation, will keep pt on breathing trial, do abg if abg looks good will keep pt intubated for 1 more day til 10/16 and then reassess for extubation tomorrow.
--- NOTE | 2021-10-15 15:15 | NUR ---
PRESS SETUP OPERATOR Pt bathed and cleaned. linen change done. skin check done with charge nurse Maite RASHID, no new wounds noted. wound care and dressing changes done per protocol. pt tolerated well. vitals stable. safety measures in place. will continue to monitor.
[2021-10-15 15:40] LABS: ABG BASE EXCESS 0.8 mmol/L; ABG OXYGEN SATURATION 97.3 % (92.0-98.5); ABG PCO2 32.3 mmHg (35.0-45.0); ABG PH 7.488 (7.350-7.450); ABG PO2 95.7 mmHg (75.0-100.0); AaDO2 80.3 mmHg; COHb 0.7 % (0.5-1.5); MetHb 0.2 % (0.0-1.5); O2Hb 96.4 % (94.0-97.0); PEEP,BG 5 cm H2O; SITE, ABG Right Radial; VT, ABG 450 mL
[2021-10-15] MEDS ORDERED: NEUTRA PHOS 1 POWD.PACKET NG ONE (16:30)
--- NOTE | 2021-10-15 19:10 | NUR ---
RN OPENING NOTES RECEIVED PATIENT ON BED, ORALLY INTUBATED, ETT-7.5, LIP 26, ON MECHANICAL VENTILATOR, SETTINGS TOLERATED WELL, RESPIRATORY EVEN AND UNLABORED, NO SOB NOTED, NOT IN ACUTE DISTRESS. REMAIN AFEBRILE. NOTED WITH LAURA PICC LINE, RAC#20 AND LAC #20 SL, PATENT, INTACT. FLUSHED WITH NS, NO S/S OF INFILTRATION NOTED AT SITE. RUNNING WITH D5 1/2 NS @ 75 ML/HR. WITH PEG TUBE, PATENT INTACT, VERIFIED PLACEMENT BY AUSCULTATION, NO RESIDUAL NOTED UPON ASPIRATION, RUNNING WITH JEVITY 1.2 @ 45 ML/HR, HEAD OF BED KEPT ELEVATED. ON SAMS CATHETER PATENT, INTACT DRAINING WITH CLEAR YELLOW URINE VIA GRAVITY. WITH BILATERAL SOFT WRIST RESTRAIN. ALL SAFETY MEASURE PROVIDED. BED IN LOWEST POSITION, LOCKED. BED ALARM ARMED. CALL LIGHT WITH IN REACH. CONTINUE TO MONITOR.
--- NOTE | 2021-10-15 19:16 | NUR ---
UNIVERSITY RELATIONS DIRECTOR Bedside report given to [facility] nurse Yo RASHID. pt intubated, no sedation, easily arousable. all lines traced. all drips verified. safety measures in place. pt clean and dry. no signs of acute distress at this time. plan of care endorsed to [facility] nurse to keep pt on SBT as tolerated for reassessment and possible extubation in am per Dr Meléndez.
[2021-10-15] MEDS: SENNOSIDES 8.6 MG TABLET GT SCH (21:33)
[2021-10-15] MEDS: JEVITY 1.2 CAL 1,000 ML BOTTLE GT PRN (23:34)
[2021-10-16] VITALS (25 sets, daily range): BP systolic 109–166; BP diastolic 56–77
[2021-10-16] MEDS: PIPERACILLIN /TAZOBACTAM 3.375 G in IV D5W 100 ML IV SCH ×3 (03:55→20:05)
[2021-10-16 04:31] LABS: BASOPHILS % (AUTO) 0.1 % (0.0-2.0); HEMATOCRIT 22 % (39-51); HEMOGLOBIN 7.2 g/dL (13.5-17.5); LYMPHOCYTES # (AUTO) 0.4 K/uL (0.8-4.8); LYMPHOCYTES % (AUTO) 6.8 % (20.0-44.0); MEAN CORPUSCULAR HGB CONC 33 g/dl (31.0-36.0); MEAN CORPUSCULAR VOLUME 92 fL (80-96); MONOCYTES # (AUTO) 0.2 K/uL (0.1-1.30); MONOCYTES % (AUTO) 4.1 % (2.0-12.0); NEUTROPHILS # (AUTO) 4.6 K/uL (1.8-8.9); PLATELET COUNT (AUTO) 167 K/uL (150-450); RED BLOOD CELL COUNT(AUTO) 2.42 MIL/uL (4.5-6.0); WHITE BLOOD COUNT (AUTO) 5.2 K/uL (4.3-11.0)
[2021-10-16 04:48] LABS: ALBUMIN 1.6 g/dL (3.4-5.0); BILIRUBIN,TOTAL 0.2 mg/dL (0.2-1.0); CALCIUM, SERUM 8.4 mg/dL (8.5-10.1); CREATININE 0.8 mg/dL (0.6-1.3); PHOSPHORUS 2.7 mg/dL (2.5-4.9)
[2021-10-16] MEDS: HYDROCORTISONE SOD SUCCINATE 100 MG/2 ML VIAL IV SCH ×3 (05:28→20:34)
[2021-10-16] MEDS: MUPIROCIN OINT 2% 22 GM TUBE TP SCH ×2 (05:28→17:53)
[2021-10-16] MEDS: IV D5/0.45 NACL 1,000 ML IV PRN (05:44)
[2021-10-16] MEDS: VANCOMYCIN 0.75 GM in IV D5W 250 ML IV SCH ×2 (06:18→17:52)
--- NOTE | 2021-10-16 07:15 | NUR ---
RN NOTES PATIENT REMAIN STABLE THROUGH OUT THE SHIFT, ORALLY INTUBATED, ETT-7.5, LIP 26, ON MECHANICAL VENTILATOR, SETTINGS TOLERATED WELL, RESPIRATORY EVEN AND UNLABORED, NO SOB NOTED, NOT IN ACUTE DISTRESS. REMAIN AFEBRILE. RUNNING WITH D5 1/2 NS @ 75 ML/HR. WITH PEG TUBE, PATENT INTACT, RUNNING WITH JEVITY 1.2 @ 45 ML/HR, HEAD OF BED KEPT ELEVATED. ON SAMS CATHETER PATENT, INTACT DRAINING WITH CLEAR YELLOW URINE VIA GRAVITY. WITH BILATERAL SOFT WRIST RESTRAIN. ALL SAFETY MEASURE PROVIDED. BED IN LOWEST POSITION, LOCKED. BED ALARM ARMED. CALL LIGHT WITH IN REACH. REPORT GIVEN TO MORNING SHIFT NURSE.
--- NOTE | 2021-10-16 07:30 | NUR ---
OPENING NOTE: REPORT RECEIVED FROM IBAN RASHID. ORDERS AND LABS REVIEWED DURING REPORT. PT IS AWAKE WITHOUT SEDATION ON SIMV SINCE YESTERDAY. PLAN TODAY IS TO EXTUBATE VS COOL AEROSOL O2 WITH ETT STILL IN TO PROTECT AIRWAY. PT CHECKED ON HOURLY AND PRN BY NURSING STAFF.
[2021-10-16] MEDS: FERROUS SULFATE UDC 300 MG/5 ML UDC GT SCH (08:33)
[2021-10-16] MEDS: LEVETIRACETAM SOL (5 ML) 100 MG/ML UDC GT SCH ×2 (08:34→20:34)
[2021-10-16] MEDS: ZINC SULFATE 220 MG CAPSULE PO SCH (08:34)
[2021-10-16] MEDS: DOCUSATE SODIUM LIQ 100 MG/10 ML UDC GT SCH (08:34)
[2021-10-16] MEDS: PROSOURCE / PROSTAT (PYXIS) 30 ML UDC GT SCH (08:34)
[2021-10-16] MEDS: PANTOPRAZOLE 40 MG/PACK PACK NG SCH (08:34)
[2021-10-16] MEDS: ASCORBIC ACID 500 MG TABLET GT SCH (08:35)
[2021-10-16] MEDS: THIAMINE HCL 100 MG TABLET GT SCH (08:35)
[2021-10-16] MEDS: ISONIAZID (300 MG) 300 MG TABLET GT SCH (08:35)
[2021-10-16] MEDS: OLANZAPINE 2.5 MG TABLET GT SCH (08:35)
[2021-10-16] MEDS: PYRIDOXINE HCL 50 MG TABLET PO SCH (08:35)
[2021-10-16] MEDS: MULTIVITAMINS,THERAGRAN 1 UDTAB TABLET GT SCH (08:35)
[2021-10-16] MEDS: Z GUARD REMEDY 4 OZ OINT TP SCH (08:36)
[2021-10-16] MEDS: ENOXAPARIN SODIUM 60 MG/0.6 ML DISP.SYRIN SQ SCH ×2 (08:39→20:43)
[2021-10-16] MEDS ORDERED: ENOXAPARIN SODIUM 40 MG/0.4 ML DISP.SYRIN SQ SCH (09:00)
[2021-10-16] MEDS ORDERED: POTASSIUM CHLORIDE 20 MEQ POWDER PACKET GT SCH (09:00)
--- NOTE | 2021-10-16 10:10 | NUR ---
PT PLACED ON COOL AEROSOL 30% WITH ETT PER MD ORDERS AT THIS TIME TO PROTECT AIRWAY
[2021-10-16] MEDS: IV NS 0.9% 250 ML IV PRN (12:14)
--- NOTE | 2021-10-16 18:23 | NUR ---
END OF SHIFT NOTE: PER PREVIOUS NOTE, PT WAS PLACED ON A T-PIECE COOL AEROSOL 8L 35% AT 1010. PT CONTINUES TO BE ON THIS WITHOUT DIFFICULTY. PT HAD 2 LARGE LOOSE BM'S TODAY WITHIN AN HOUR OF EACH OTHER. TUBE FEEDING HELD FOR A FEW HOURS TO ALLOW PT'S STOMACH TO RELAX. WATER FLUSHES CONTINUE TO BE GIVEN PER MD ORDERS. IVF DC'D TODAY. PT HAD 1875 UOP THIS SHIFT. PT CHECKED ON HOURLY AND PRN BY NURSING STAFF.
--- NOTE | 2021-10-16 19:10 | NUR ---
RN OPENING NOTES RECEIVED PATIENT ON BED, ORALLY INTUBATED, ETT-7.5, LIP 26, ON COOL AEROSOL 35% @ 8LPM, RESPIRATORY EVEN AND UNLABORED, NO SOB NOTED, NOT IN ACUTE DISTRESS. REMAIN AFEBRILE. NOTED WITH LAURA PICC LINE, PATENT, INTACT. FLUSHED WITH NS, NO S/S OF INFILTRATION NOTED AT SITE. WITH PEG TUBE, PATENT INTACT, VERIFIED PLACEMENT BY AUSCULTATION, NO RESIDUAL NOTED UPON ASPIRATION, RUNNING WITH JEVITY 1.2 @ 45 ML/HR, HEAD OF BED KEPT ELEVATED. ON SAMS CATHETER PATENT, INTACT DRAINING WITH CLEAR YELLOW URINE VIA GRAVITY. WITH BILATERAL SOFT WRIST RESTRAIN. ALL SAFETY MEASURE PROVIDED. BED IN LOWEST POSITION, LOCKED. BED ALARM ARMED. CALL LIGHT WITH IN REACH. CONTINUE TO MONITOR.
[2021-10-16] MEDS: SENNOSIDES 8.6 MG TABLET GT SCH (21:51)
--- NOTE | 2021-10-16 21:51 | NUR ---
RN NOTES SENNA 8.6 2 TABS, HELD, PATIENT NOTED WITH LOOSE BOWEL MOVEMENT. NO S/S OF DEHYDRATION NOTED AT THIS TIME. CONTINUE TO MONITOR.
[2021-10-17] VITALS (24 sets, daily range): BP systolic 117–163; BP diastolic 52–82
[2021-10-17] MEDS: PIPERACILLIN /TAZOBACTAM 3.375 G in IV D5W 100 ML IV SCH ×3 (04:02→20:00)
[2021-10-17] MEDS: JEVITY 1.2 CAL 1,000 ML BOTTLE GT PRN (04:32)
[2021-10-17] MEDS: HYDROCORTISONE SOD SUCCINATE 100 MG/2 ML VIAL IV SCH ×3 (05:11→21:05)
[2021-10-17] MEDS: MUPIROCIN OINT 2% 22 GM TUBE TP SCH ×2 (05:12→17:38)
[2021-10-17 05:31] LABS: BASOPHILS % (AUTO) 0.1 % (0.0-2.0); HEMATOCRIT 22 % (39-51); HEMOGLOBIN 7.4 g/dL (13.5-17.5); LYMPHOCYTES # (AUTO) 0.5 K/uL (0.8-4.8); LYMPHOCYTES % (AUTO) 9.6 % (20.0-44.0); MEAN CORPUSCULAR HGB CONC 33 g/dl (31.0-36.0); MEAN CORPUSCULAR VOLUME 90 fL (80-96); MONOCYTES # (AUTO) 0.3 K/uL (0.1-1.30); MONOCYTES % (AUTO) 6.1 % (2.0-12.0); NEUTROPHILS # (AUTO) 4.6 K/uL (1.8-8.9); NEUTROPHILS % (AUTO) 84.2 % (43.0-81.0); PLATELET COUNT (AUTO) 188 K/uL (150-450); RED BLOOD CELL COUNT(AUTO) 2.49 MIL/uL (4.5-6.0); WHITE BLOOD COUNT (AUTO) 5.5 K/uL (4.3-11.0)
[2021-10-17] MEDS: VANCOMYCIN 0.75 GM in IV D5W 250 ML IV SCH ×2 (05:56→18:13)
[2021-10-17 06:00] LABS: ALBUMIN 1.7 g/dL (3.4-5.0); BILIRUBIN,TOTAL 0.5 mg/dL (0.2-1.0); CALCIUM, SERUM 8.4 mg/dL (8.5-10.1); CREATININE 0.7 mg/dL (0.6-1.3); MAGNESIUM 1.8 mg/dL (1.8-2.4); PHOSPHORUS 2.8 mg/dL (2.5-4.9); TOTAL PROTEIN, SERUM 6.9 g/dL (6.4-8.2)
[2021-10-17 06:19] LABS: POTASSIUM 2.8 mmol/L (3.5-5.1)
--- NOTE | 2021-10-17 06:30 | NUR ---
RN NOTES NOTIFIED HEATING ELEMENT WINDER INO PRAKASH REGARDING LATEST POTASSIUM LEVEL 2.8 WITH NEW ORDER POTASSIUM 40 MEQ POWDER GT Q 2HRS X 2 DOSE, POTASSIUM 20 MEQ IV, NOTED AND CARRIED OUT.
[2021-10-17] MEDS ORDERED: POTASSIUM CHLORIDE 20 MEQ POWDER PACKET GT SCH ×2 (07:00→09:00)
--- NOTE | 2021-10-17 07:23 | NUR ---
RN NOTES PATIENT REMAIN STABLE THROUGH OUT THE SHIFT, ORALLY INTUBATED, ETT-7.5, LIP 26, ON COOL AEROSOL 35% @ 8LPM, RESPIRATORY EVEN AND UNLABORED, NO SOB NOTED, NOT IN ACUTE DISTRESS. REMAIN AFEBRILE. WITH PEG TUBE, PATENT INTACT, RUNNING WITH JEVITY 1.2 @ 45 ML/HR, HEAD OF BED KEPT ELEVATED. ON SAMS CATHETER PATENT, INTACT DRAINING WITH CLEAR YELLOW URINE VIA GRAVITY. WITH BILATERAL SOFT WRIST RESTRAIN. ALL DUE MEDS GIVEN ORDERED. ALL SAFETY MEASURE PROVIDED. BED IN LOWEST POSITION, LOCKED. BED ALARM ARMED. CALL LIGHT WITH IN REACH. REPORT GIVEN TO MORNING SHIFT NURSE.
[2021-10-17] MEDS: POTASSIUM CL. PREMIX PERIPHER. 50 ML IV SCH ×2 (07:36→08:48)
[2021-10-17] MEDS: PANTOPRAZOLE 40 MG/PACK PACK NG SCH (07:36)
[2021-10-17] MEDS: LEVETIRACETAM SOL (5 ML) 100 MG/ML UDC GT SCH ×2 (09:00→21:05)
[2021-10-17] MEDS: FERROUS SULFATE UDC 300 MG/5 ML UDC GT SCH (09:01)
[2021-10-17] MEDS: OLANZAPINE 2.5 MG TABLET GT SCH (09:01)
[2021-10-17] MEDS: PYRIDOXINE HCL 50 MG TABLET PO SCH (09:01)
[2021-10-17] MEDS: THIAMINE HCL 100 MG TABLET GT SCH (09:01)
[2021-10-17] MEDS: ZINC SULFATE 220 MG CAPSULE PO SCH (09:02)
[2021-10-17] MEDS: ASCORBIC ACID 500 MG TABLET GT SCH (09:02)
[2021-10-17] MEDS: ISONIAZID (300 MG) 300 MG TABLET GT SCH (09:02)
[2021-10-17] MEDS: MULTIVITAMINS,THERAGRAN 1 UDTAB TABLET GT SCH (09:02)
[2021-10-17] MEDS: PROSOURCE / PROSTAT (PYXIS) 30 ML UDC GT SCH (09:06)
[2021-10-17] MEDS: DOCUSATE SODIUM LIQ 100 MG/10 ML UDC GT SCH (09:12)
[2021-10-17] MEDS: ENOXAPARIN SODIUM 60 MG/0.6 ML DISP.SYRIN SQ SCH ×2 (09:15→21:07)
[2021-10-17] MEDS: Z GUARD REMEDY 4 OZ OINT TP SCH (09:18)
[2021-10-17] MEDS: IV NS 0.9% 250 ML IV PRN (12:24)
--- NOTE | 2021-10-17 19:05 | NUR ---
BEDSIDE REPORT GIVEN TO RN-RICCO FOR CONTINUITY OF CARE. NO SIGNIFICANT CHANGES NOTED AT THIS TIME.
--- NOTE | 2021-10-17 20:00 | NUR ---
ICU NOTES Received patient awake not in acute distress.DX: Acute Respiratory Failure on T-piece 33% 8L/min. Secretions suctioned PRN still with moderate secretions.SR/SB 50's.Normotensive.GT feeding in progress maintained aspiration precaution HOB elevated.IVF NS at TKO infusing via LAURA PICC LINE site intact. FC to gravity.Turned and repositioned.Continue monitoring.
[2021-10-17] MEDS: SENNOSIDES 8.6 MG TABLET GT SCH (21:31)
[2021-10-18] VITALS (24 sets, daily range): BP systolic 116–149; BP diastolic 57–86
[2021-10-18] MEDS: PIPERACILLIN /TAZOBACTAM 3.375 G in IV D5W 100 ML IV SCH ×3 (04:00→20:00)
[2021-10-18 04:58] LABS: BASOPHILS % (AUTO) 0.1 % (0.0-2.0); HEMATOCRIT 24 % (39-51); HEMOGLOBIN 7.8 g/dL (13.5-17.5); LYMPHOCYTES # (AUTO) 0.6 K/uL (0.8-4.8); MEAN CORPUSCULAR HGB CONC 33 g/dl (31.0-36.0); MEAN CORPUSCULAR VOLUME 90 fL (80-96); MONOCYTES # (AUTO) 0.3 K/uL (0.1-1.30); MONOCYTES % (AUTO) 5.3 % (2.0-12.0); NEUTROPHILS # (AUTO) 4.7 K/uL (1.8-8.9); NEUTROPHILS % (AUTO) 84.6 % (43.0-81.0); PLATELET COUNT (AUTO) 189 K/uL (150-450); WHITE BLOOD COUNT (AUTO) 5.6 K/uL (4.3-11.0)
[2021-10-18 05:05] LABS: CALCIUM, SERUM 8.4 mg/dL (8.5-10.1); CREATININE 0.7 mg/dL (0.6-1.3); POTASSIUM 3.3 mmol/L (3.5-5.1)
[2021-10-18] MEDS: HYDROCORTISONE SOD SUCCINATE 100 MG/2 ML VIAL IV SCH ×3 (05:06→20:55)
[2021-10-18] MEDS: MUPIROCIN OINT 2% 22 GM TUBE TP SCH ×2 (05:07→16:35)
[2021-10-18] MEDS: VANCOMYCIN 1 GM in IV D5W 250ml IV SCH ×2 (05:31→17:04)
[2021-10-18] MEDS: JEVITY 1.2 CAL 1,000 ML BOTTLE GT PRN ×2 (05:38→21:50)
--- NOTE | 2021-10-18 06:15 | NUR ---
END NOTES Patient resting in no acute distress.SB 50'S. VS remains stable.Tolerating gt feedings well. All due medications administered.AM care done.Oral care done & secretions suctioned prn.Wound care done.Turned and repositioned.No significant change noted during the shift.
--- NOTE | 2021-10-18 07:00 | NUR ---
OPENING NOTES RECEIVED PATIENT ON BED, ORALLY INTUBATED, ON COOL AEROSOL 33% @ 8LPM, RESPIRATORY EVEN AND UNLABORED, NO SOB NOTED, NOT IN ACUTE DISTRESS. NOTED WITH LAURA PICC LINE, PATENT, INTACT. FLUSHED WITH NS, NO S/S OF INFILTRATION NOTED AT SITE. WITH PEG TUBE, PATENT INTACT, VERIFIED PLACEMENT BY AUSCULTATION, NO RESIDUAL NOTED UPON ASPIRATION, RUNNING WITH JEVITY 1.2 @ 45 ML/HR, HEAD OF BED KEPT ELEVATED. ON SAMS CATHETER PATENT, INTACT DRAINING WITH CLEAR YELLOW URINE VIA GRAVITY. ALL SAFETY MEASURE PROVIDED. BED IN LOWEST POSITION, LOCKED. BED ALARM on, CALL LIGHT WITHIN EASY REACH. CONTINUE TO MONITOR.
[2021-10-18] MEDS ORDERED: POTASSIUM CHLORIDE 20 MEQ POWDER PACKET GT SCH (08:00)
[2021-10-18] MEDS: ISONIAZID (300 MG) 300 MG TABLET GT SCH (08:24)
[2021-10-18] MEDS: ASCORBIC ACID 500 MG TABLET GT SCH (08:24)
[2021-10-18] MEDS: MULTIVITAMINS,THERAGRAN 1 UDTAB TABLET GT SCH (08:24)
[2021-10-18] MEDS: THIAMINE HCL 100 MG TABLET GT SCH (08:25)
[2021-10-18] MEDS: ZINC SULFATE 220 MG CAPSULE PO SCH (08:25)
[2021-10-18] MEDS: DOCUSATE SODIUM LIQ 100 MG/10 ML UDC GT SCH (08:25)
[2021-10-18] MEDS: LEVETIRACETAM SOL (5 ML) 100 MG/ML UDC GT SCH ×2 (08:25→20:55)
[2021-10-18] MEDS: FERROUS SULFATE UDC 300 MG/5 ML UDC GT SCH (08:25)
[2021-10-18] MEDS: OLANZAPINE 2.5 MG TABLET GT SCH (08:25)
[2021-10-18] MEDS: PYRIDOXINE HCL 50 MG TABLET PO SCH (08:25)
[2021-10-18] MEDS: ENOXAPARIN SODIUM 60 MG/0.6 ML DISP.SYRIN SQ SCH ×2 (08:27→20:56)
[2021-10-18] MEDS: Z GUARD REMEDY 4 OZ OINT TP SCH (08:29)
[2021-10-18] MEDS: PROSOURCE / PROSTAT (PYXIS) 30 ML UDC GT SCH (08:30)
[2021-10-18] MEDS: PANTOPRAZOLE 40 MG/PACK PACK NG SCH (08:30)
--- NOTE | 2021-10-18 12:00 | NUR ---
RN NOTES ET TUBE AND ORAL SUCTIONING DONE , MODERATED AMOUNT OF THICK WHITISH SECRETION NOTED.
--- NOTE | 2021-10-18 18:00 | NUR ---
RN NOTES PT REMAINS INTUBATED , ALERT , FOLLOWS SIMPLE COMMAND , FREQUENT ET AND ORAL SUCTIONING DONE, SAMS DRAINING TO GRAVITY, TF AT 45CC/HR RUNNING , R UPPER ARM PICC LINE SITE CLEAN ,DRY AND INTACT, SR UP x4, CALL LIGHT WITHIN EASY REACH, BED LOCKED AND IN LOWEST POSITION,WILL ENDORSE TO BOOKKEEPER ASSISTANT NURSE FOR CONTINUITY OF CARE .
[2021-10-18] MEDS: SENNOSIDES 8.6 MG TABLET GT SCH (21:06)
[2021-10-19] VITALS (24 sets, daily range): BP systolic 105–151; BP diastolic 59–103
--- NOTE | 2021-10-19 | NUR ---
GUT SNATCHER PT NOTED TO DESATURATE TO MID 40s WITH INCREASED HR TO 130s; PT SUCTIONED. CONTINUES TO HAVE LARGE AMOUNT OF SECRETIONS. PT REMAINED ALERT.
[2021-10-19] MEDS: PIPERACILLIN /TAZOBACTAM 3.375 G in IV D5W 100 ML IV SCH ×2 (03:00→11:33)
[2021-10-19 04:37] LABS: BASOPHILS % (AUTO) 0.2 % (0.0-2.0); HEMATOCRIT 25 % (39-51); HEMOGLOBIN 8.1 g/dL (13.5-17.5); LYMPHOCYTES # (AUTO) 0.5 K/uL (0.8-4.8); LYMPHOCYTES % (AUTO) 7.5 % (20.0-44.0); MEAN CORPUSCULAR HGB CONC 33 g/dl (31.0-36.0); MEAN CORPUSCULAR VOLUME 90 fL (80-96); MONOCYTES # (AUTO) 0.3 K/uL (0.1-1.30); MONOCYTES % (AUTO) 4.9 % (2.0-12.0); NEUTROPHILS # (AUTO) 6.2 K/uL (1.8-8.9); NEUTROPHILS % (AUTO) 87.4 % (43.0-81.0); PLATELET COUNT (AUTO) 217 K/uL (150-450); RED BLOOD CELL COUNT(AUTO) 2.73 MIL/uL (4.5-6.0); WHITE BLOOD COUNT (AUTO) 7.1 K/uL (4.3-11.0)
[2021-10-19] MEDS: HYDROCORTISONE SOD SUCCINATE 100 MG/2 ML VIAL IV SCH ×2 (04:51→12:29)
[2021-10-19] MEDS: MUPIROCIN OINT 2% 22 GM TUBE TP SCH ×2 (04:51→16:52)
[2021-10-19 05:09] LABS: CALCIUM, SERUM 8.5 mg/dL (8.5-10.1); CREATININE 0.7 mg/dL (0.6-1.3); PHOSPHORUS 2.7 mg/dL (2.5-4.9); POTASSIUM 3.5 mmol/L (3.5-5.1)
[2021-10-19] MEDS: VANCOMYCIN 1 GM in IV D5W 250ml IV SCH (06:00)
--- NOTE | 2021-10-19 07:00 | NUR ---
RN NOTES RECEIVED PATIENT ON BED, ORALLY INTUBATED, ON COOL AEROSOL 33% @ 8LPM, RESPIRATORY EVEN AND UNLABORED, NO SOB NOTED, NOT IN ACUTE DISTRESS. NOTED WITH LAURA PICC LINE, PATENT, INTACT. FLUSHED WITH NS, NO S/S OF INFILTRATION NOTED AT SITE. WITH PEG TUBE, PATENT INTACT, VERIFIED PLACEMENT BY AUSCULTATION, NO RESIDUAL NOTED UPON ASPIRATION, RUNNING WITH JEVITY 1.2 @ 45 ML/HR, HEAD OF BED KEPT ELEVATED. SAMS CATHETER PATENT, INTACT DRAINING WITH CLEAR YELLOW URINE VIA GRAVITY. ALL SAFETY MEASURE PROVIDED. BED IN LOWEST POSITION, LOCKED. BED ALARM ON, CALL LIGHT WITHIN EASY REACH. CONTINUE TO MONITOR.
[2021-10-19] MEDS: FERROUS SULFATE UDC 300 MG/5 ML UDC GT SCH (08:19)
[2021-10-19] MEDS: OLANZAPINE 2.5 MG TABLET GT SCH (08:19)
[2021-10-19] MEDS: PANTOPRAZOLE 40 MG/PACK PACK NG SCH (08:19)
[2021-10-19] MEDS: ENOXAPARIN SODIUM 60 MG/0.6 ML DISP.SYRIN SQ SCH ×2 (08:19→21:18)
[2021-10-19] MEDS: LEVETIRACETAM SOL (5 ML) 100 MG/ML UDC GT SCH ×2 (08:19→21:16)
[2021-10-19] MEDS: THIAMINE HCL 100 MG TABLET GT SCH (08:20)
[2021-10-19] MEDS: MULTIVITAMINS,THERAGRAN 1 UDTAB TABLET GT SCH (08:20)
[2021-10-19] MEDS: PYRIDOXINE HCL 50 MG TABLET PO SCH (08:20)
[2021-10-19] MEDS: ASCORBIC ACID 500 MG TABLET GT SCH (08:20)
[2021-10-19] MEDS: ZINC SULFATE 220 MG CAPSULE PO SCH (08:20)
[2021-10-19] MEDS: PROSOURCE / PROSTAT (PYXIS) 30 ML UDC GT SCH (08:20)
[2021-10-19] MEDS: ISONIAZID (300 MG) 300 MG TABLET GT SCH (08:20)
[2021-10-19] MEDS: Z GUARD REMEDY 4 OZ OINT TP SCH (08:24)
[2021-10-19] MEDS: DOCUSATE SODIUM LIQ 100 MG/10 ML UDC GT SCH (08:25)
--- NOTE | 2021-10-19 13:00 | NUR ---
RN NOTES ET TUBE AND ORAL SUCTIONING DONE , MODERATED AMOUNT OF THICK WHITISH SECRETION NOTED.
--- NOTE | 2021-10-19 18:00 | NUR ---
RN NOTES PT REMAINS INTUBATED , ALERT , FOLLOWS SIMPLE COMMAND , FREQUENT ET AND ORAL SUCTIONING DONE, SAMS DRAINING TO GRAVITY, TF AT 45CC/HR RUNNING , R UPPER ARM PICC LINE SITE CLEAN ,DRY AND INTACT, SR UP x3, CALL LIGHT WITHIN EASY REACH, BED LOCKED AND IN LOWEST POSITION,WILL ENDORSE TO WASTEWATER TECHNICIAN NURSE FOR CONTINUITY OF CARE
--- NOTE | 2021-10-19 19:26 | NUR ---
RN NOTE RECEIVED PATIENT IN BED, AWAKE, ABLE TO NOD YES OR NO TO SIMPLE QUESTIONS. BREATHING EVEN AND UNLABORED. PATIENT ON COOL AEROSOL AT 5L/MIN FIO2 OF 28%. TOLERATING WELL WITH OXYGEN SATURATION OF 100 PERCENT VIA BEDSIDE MONITOR WITH GOOD WAVEFORM. PATIENT IS PRODUCING MODERATE AMOUNT OF THIN WHITE MUCOUS ORALLY AND FROM ETT. HOB ELEVATED 40 DEGREES. SKIN IS WARM AND DRY TO TOUCH. NO BLEEDING AT THIS TIME. RIGHT UPPER ARM PICC LINE WITH INTACT DRESSING. PEG TUBE IN PLACE INFUSING JEVITY AT 45 CC/HR, ABOUT 10 CC OF RESIDUAL. INDWELLING SAMS CATHETER IN PLACE. INTACT, DRAINING YELLOW URINE BY GRAVITY. BILATERAL SOFT WRIST RESTRAINTS. RELEASED AND ASSISTED PATIENT WITH RANGE OF MOTION. REAPPLIED. RADIAL PULSES WNL. 2 FINGER SPACE OBSERVED. ASSISTED PATIENT WITH REPOSITIONING. BED LOW, IN LOCKED POSITION. CALL LIGHT WITHIN REACH. WILL CONTINUE TO MONITOR.
[2021-10-19] MEDS: SENNOSIDES 8.6 MG TABLET GT SCH (21:16)
[2021-10-19] MEDS: IV NS 0.9% 250 ML IV PRN (22:02)
[2021-10-20] VITALS (27 sets, daily range): BP systolic 115–155; BP diastolic 55–90
[2021-10-20] MEDS: JEVITY 1.2 CAL 1,000 ML BOTTLE GT PRN (04:06)
[2021-10-20 04:16] LABS: BASOPHILS % (AUTO) 0.2 % (0.0-2.0); EOSINOPHILS % (AUTO) 0.2 % (0.0-6.0); HEMATOCRIT 28 % (39-51); HEMOGLOBIN 9.1 g/dL (13.5-17.5); LYMPHOCYTES # (AUTO) 1.1 K/uL (0.8-4.8); LYMPHOCYTES % (AUTO) 15.8 % (20.0-44.0); MEAN CORPUSCULAR HGB CONC 33 g/dl (31.0-36.0); MEAN CORPUSCULAR VOLUME 90 fL (80-96); MONOCYTES # (AUTO) 0.3 K/uL (0.1-1.30); MONOCYTES % (AUTO) 4.7 % (2.0-12.0); NEUTROPHILS # (AUTO) 5.7 K/uL (1.8-8.9); NEUTROPHILS % (AUTO) 79.1 % (43.0-81.0); PLATELET COUNT (AUTO) 231 K/uL (150-450); RED BLOOD CELL COUNT(AUTO) 3.05 MIL/uL (4.5-6.0); WHITE BLOOD COUNT (AUTO) 7.2 K/uL (4.3-11.0)
[2021-10-20 04:22] LABS: CALCIUM, SERUM 8.7 mg/dL (8.5-10.1); CREATININE 0.7 mg/dL (0.6-1.3); POTASSIUM 3.4 mmol/L (3.5-5.1)
[2021-10-20] MEDS: MUPIROCIN OINT 2% 22 GM TUBE TP SCH ×2 (04:47→16:39)
--- NOTE | 2021-10-20 06:21 | NUR ---
RN NOTE NO SIGNIFICANT CHANGES. PATIENT TOLERATED COOL AEROSOL. OXYGEN SATURATION OF 100 PERCENT VIA BEDSIDE MONITOR WITH GOOD WAVEFORM. PATIENT SUCTIONED VIA ETT AND ORALLY. MODERATE AMOUNT OF THIN WHITE FLUIDS. HOB ELEVATED 35 DEGREES. ALL NEEDS ATTENDED. KEPT CLEAN AND DRY. BED LOW, IN LOCKED POSITION, CALL LIGHT WITHIN REACH.
--- NOTE | 2021-10-20 07:35 | NUR ---
RN OPENING NOTE RECEIVED PT IN BED RESTING, A/O 2, COOL AEROSOL SETTINGS SET ORDERED. TELE MONITOR READS SR. SAMS DRAINING CLEAR YELLOW URINE. JEVITY 1.2 AT 45CC HR. IV ACCESS NOTED AT [facility] PIC. ALL SAFETY MEASURES IN PLACE, WILL CONT TO MONITOR THROUGHOUT SHIFT.
[2021-10-20] MEDS ORDERED: POTASSIUM CHLORIDE 20 MEQ POWDER PACKET NG SCH (08:00)
[2021-10-20] MEDS: ZINC SULFATE 220 MG CAPSULE PO SCH (08:31)
[2021-10-20] MEDS: THIAMINE HCL 100 MG TABLET GT SCH (08:31)
[2021-10-20] MEDS: ASCORBIC ACID 500 MG TABLET GT SCH (08:31)
[2021-10-20] MEDS: ISONIAZID (300 MG) 300 MG TABLET GT SCH (08:31)
[2021-10-20] MEDS: PYRIDOXINE HCL 50 MG TABLET PO SCH (08:31)
[2021-10-20] MEDS: OLANZAPINE 2.5 MG TABLET GT SCH (08:31)
[2021-10-20] MEDS: MULTIVITAMINS,THERAGRAN 1 UDTAB TABLET GT SCH (08:31)
[2021-10-20] MEDS: PANTOPRAZOLE 40 MG/PACK PACK NG SCH (08:32)
[2021-10-20] MEDS: HYDROCORTISONE SOD SUCCINATE 100 MG/2 ML VIAL IV SCH (08:32)
[2021-10-20] MEDS: FERROUS SULFATE UDC 300 MG/5 ML UDC GT SCH (08:32)
[2021-10-20] MEDS: DOCUSATE SODIUM LIQ 100 MG/10 ML UDC GT SCH (08:32)
[2021-10-20] MEDS: PROSOURCE / PROSTAT (PYXIS) 30 ML UDC GT SCH (08:33)
[2021-10-20] MEDS: LEVETIRACETAM SOL (5 ML) 100 MG/ML UDC GT SCH ×2 (08:33→21:25)
[2021-10-20] MEDS: Z GUARD REMEDY 4 OZ OINT TP SCH (08:34)
[2021-10-20] MEDS: ENOXAPARIN SODIUM 60 MG/0.6 ML DISP.SYRIN SQ SCH ×2 (08:35→21:27)
--- NOTE | 2021-10-20 09:06 | NUR ---
RN NOTES DUE TO PT INTUBATED AND OFF PROPOFOL, TRIGLYCERIDE LABS ORDERED PER PHARMACY.
--- NOTE | 2021-10-20 09:36 | NUR ---
RN NOTES TRIGLYCERIDE LEVEL WNL 83.
[2021-10-20] MEDS ORDERED: DC PROPOFOL WHEN EXTUBATED XX PRN (10:00)
--- NOTE | 2021-10-20 12:33 | NUR ---
RN NOTES ORDER FOR EXTUBATION GIVEN BY DR. BRANTLEY, ORDERS ACKNOWLEDGED.
--- NOTE | 2021-10-20 12:57 | NUR ---
Pt extubated. On RA sating at 98%.
--- NOTE | 2021-10-20 12:57 | NUR ---
RT PER DR GODFREY ORDER PATIENT WAS EXTUBATED AND REMAINS ON ROOM AIR SPO2 99%. PATIENT AWAKE AND RESPONSIVE WITH NO COMPLAINTS OF SOB. RN AWARE.
[2021-10-20] MEDS: DAKINS QUARTER STRENGTH (0.125%) 480 ML BOTTLE TOP SCH (14:12)
--- NOTE | 2021-10-20 14:20 | NUR ---
Pt sating at 90% on ra. Pt on 2l via nc sating 96%. Addendum: 10/20/21 at 1421 by ALISSON VALERO RN "pt now on 2l via nc".
--- NOTE | 2021-10-20 18:49 | NUR ---
RN CLOSING NOTES PT IS RESTING IN BED A/O X 2-3. TELE MONITOR READS SR. SAMS DRAINING CLEAR YELLOW URINE. JEVITY 1.2 RUNNING AT 45 CC/HR. IV ACCESS ON LAURA PICC WITH NS TKO. PT EXTUBATED AND ON 2L VIA NC SATING AT 96%. ALL SAFETY MEASURES IN PLACE, BED IN LOWEST LOCKED POSITION, SR UP X 2, CALL LIGHT WITHIN REACH. WILL ENDORSE TO DENTAL RECEPTIONIST NURSE.
--- NOTE | 2021-10-20 19:43 | NUR ---
ETL ANALYST. INITIAL ASSESSMENT. RECEIVED THE PT REST IN BED. EXTUBATED TODAY. PT AWAKE, ALERT, FOLLOW SIMPLE COMMANDS. OXYGEN 2L VIA N/C. SAT 99%. NO ACUTE DISTRESS NOTED. STONE SETTER APPRENTICE SHOWING NSR. IV T UPPER ARM PICC LINE. TKO RUNNING. GT INTACT. JEVITY 45 ML/H. HOB ELEVATED. FC PATENT. WILL MONITOR VITALS.
[2021-10-20] MEDS: SENNOSIDES 8.6 MG TABLET GT SCH (21:26)
[2021-10-20] MEDS: IV NS 0.9% 250 ML IV PRN (21:29)
[2021-10-21] VITALS (32 sets, daily range): BP systolic 102–146; BP diastolic 56–83
[2021-10-21] MEDS: JEVITY 1.2 CAL 1,000 ML BOTTLE GT PRN (01:56)
--- NOTE | 2021-10-21 04:08 | NUR ---
AM CARE GIVEN. REMAINING SAME OXYGEN TOLERATED WELL. SAT 99%. 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 SALINE LOCK, GT FEEDING TOLERATYED WELL. HOB ELEVATED. FC PATENT URINE DRAINING. TURN AND REPOSITION Q2H. WILL CONTINUE TO MONITOR VITALS.
[2021-10-21 04:37] LABS: BASOPHILS % (AUTO) 0.2 % (0.0-2.0); EOSINOPHILS % (AUTO) 0.5 % (0.0-6.0); HEMATOCRIT 27 % (39-51); HEMOGLOBIN 8.9 g/dL (13.5-17.5); LYMPHOCYTES # (AUTO) 1.1 K/uL (0.8-4.8); LYMPHOCYTES % (AUTO) 14.8 % (20.0-44.0); MEAN CORPUSCULAR HGB CONC 34 g/dl (31.0-36.0); MEAN CORPUSCULAR VOLUME 89 fL (80-96); MONOCYTES # (AUTO) 0.2 K/uL (0.1-1.30); MONOCYTES % (AUTO) 2.6 % (2.0-12.0); NEUTROPHILS # (AUTO) 6.3 K/uL (1.8-8.9); NEUTROPHILS % (AUTO) 81.9 % (43.0-81.0); PLATELET COUNT (AUTO) 238 K/uL (150-450); RED BLOOD CELL COUNT(AUTO) 2.99 MIL/uL (4.5-6.0); WHITE BLOOD COUNT (AUTO) 7.7 K/uL (4.3-11.0)
[2021-10-21 04:45] LABS: CREATININE 0.7 mg/dL (0.6-1.3); PHOSPHORUS 2.3 mg/dL (2.5-4.9); POTASSIUM 3.2 mmol/L (3.5-5.1)
[2021-10-21] MEDS: MUPIROCIN OINT 2% 22 GM TUBE TP SCH (06:12)
--- NOTE | 2021-10-21 07:00 | NUR ---
RN NOTES RECEIVED PT ON BED, ALERT/ FOLLOWS SIMPLE COMMAND, ON 4L O2 N/C , O2 SAT WNL, PT HAS MODERATE AMOUNT OF THICK WHITISH, SECRETION , NT SUCTIONING DONE . ON TELE ST HR IN 100'S . SAMS DRANING TO GRAVITY, TF AT 45CC/HR RUNNING , IV SITE CLEAN, DRY AND INTACT, SR UP x3, CALL LIGHT WITH IN EASY REACH , BED LOCKED AND IN LOWEST POSITION, CONTINUE TO MONITOR.
[2021-10-21] MEDS ORDERED: POTASSIUM PHOSPHATE MM 15 MMOL in IV NS 0.9% 250 ML IV SCH (08:00)
[2021-10-21] MEDS: PANTOPRAZOLE 40 MG/PACK PACK NG SCH (08:11)
[2021-10-21] MEDS: ACETAMINOPHEN 325 MG TABLET PO PRN ×2 (08:12→21:09)
[2021-10-21] MEDS: ZINC SULFATE 220 MG CAPSULE PO SCH (08:12)
[2021-10-21] MEDS: PYRIDOXINE HCL 50 MG TABLET PO SCH (08:12)
[2021-10-21] MEDS: THIAMINE HCL 100 MG TABLET GT SCH (08:12)
[2021-10-21] MEDS: MULTIVITAMINS,THERAGRAN 1 UDTAB TABLET GT SCH (08:12)
[2021-10-21] MEDS: OLANZAPINE 2.5 MG TABLET GT SCH (08:12)
[2021-10-21] MEDS: ASCORBIC ACID 500 MG TABLET GT SCH (08:12)
[2021-10-21] MEDS: LEVETIRACETAM SOL (5 ML) 100 MG/ML UDC GT SCH ×2 (08:12→21:08)
[2021-10-21] MEDS: ISONIAZID (300 MG) 300 MG TABLET GT SCH (08:13)
[2021-10-21] MEDS: FERROUS SULFATE UDC 300 MG/5 ML UDC GT SCH (08:13)
[2021-10-21] MEDS: HYDROCORTISONE SOD SUCCINATE 100 MG/2 ML VIAL IV SCH (08:14)
[2021-10-21] MEDS: DOCUSATE SODIUM LIQ 100 MG/10 ML UDC GT SCH (08:14)
[2021-10-21] MEDS: ENOXAPARIN SODIUM 60 MG/0.6 ML DISP.SYRIN SQ SCH ×2 (08:14→21:08)
[2021-10-21] MEDS: DAKINS QUARTER STRENGTH (0.125%) 480 ML BOTTLE TOP SCH (08:15)
[2021-10-21] MEDS: Z GUARD REMEDY 4 OZ OINT TP SCH (08:15)
[2021-10-21] MEDS: PROSOURCE / PROSTAT (PYXIS) 30 ML UDC GT SCH (08:15)
[2021-10-21] MEDS ORDERED: POTASSIUM CHLORIDE 20 MEQ POWDER PACKET NG SCH (11:00)
--- NOTE | 2021-10-21 12:00 | NUR ---
RN NOTES PT STABLE, ORAL CARE DONE, NO DISTESS NOTED, CONTINUE TO MONITOR.
--- NOTE | 2021-10-21 18:30 | NUR ---
RN NOTES PT TRANSFERRED TO TELE BED, VIA ACLS PROTOCAL ,INSTABLE CONDITION, NO BELONGINGS, NOTED, WILL ENDORSE TO NIGHT NURSE FOR CONTINUITY OF CARE .
--- NOTE | 2021-10-21 19:30 | NUR ---
RN NOTES: RECEIVED PT IN BED AWAKE, ALERT/ORIENTED X2 AND VERBALLY RESPONSIVE. ON 2L VIA N/C AND PT TOLERATED WELL. IV ACCESS ON LAURA PICC INTACT AND PATENT. NO S/S OF ACTIVE BLEEDING NOTED. NO C/O PAIN OR DISCOMFORT. NO ACUTE DISTRESS. ON GTUBE FEEDING WELL TOLERATED WELL, JEVITY @45CC/HR. ALL SAFETY MEASURES IN PLACE. SIDE RAILS UP X3, BED IN LOWEST POSITION AND LOCKED. PLACE CALL LIGHT WITH IN REACH. WILL CONTINUE TO MONITOR
--- NOTE | 2021-10-21 20:30 | NUR ---
RN NOTES: NOTED PT WITH SWEATING, LETHARGIC, ASSESSED OXYGEN LEVEL. O2 SAT AT DECREASED TO 70% WITH 2L/MIN VIA N/C. APPLIED NON-BREATHER MASK WITH 15L/MIN. DEEP NASAL SUCTION DONE BY RT. NOTED THICK MODERATED AMOUNT OF WHITE SECRETIONS. O2 SAT INCREASED TO 94%. WILL CONTINUE TO MONITOR.
[2021-10-21] MEDS: SENNOSIDES 8.6 MG TABLET GT SCH (21:09)
--- NOTE | 2021-10-21 21:15 | NUR ---
RN NOTES: PT NOTED WITH FACIAL GRIMACING, C/O GENERALIZED BODY ACHE. TYLENOL 325 MG 2 TABS GIVEN PER PRN ORDERED VIA [facility]. PT TOLERATED WELL. WILL CONTINUE TO MONITOR
[2021-10-22] VITALS (25 sets, daily range): BP systolic 95–156; BP diastolic 53–86
[2021-10-22 06:38] LABS: BASOPHILS % (AUTO) 0.2 % (0.0-2.0); HEMATOCRIT 29 % (39-51); HEMOGLOBIN 9.3 g/dL (13.5-17.5); LYMPHOCYTES # (AUTO) 0.5 K/uL (0.8-4.8); LYMPHOCYTES % (AUTO) 2.1 % (20.0-44.0); MEAN CORPUSCULAR HGB CONC 33 g/dl (31.0-36.0); MEAN CORPUSCULAR VOLUME 90 fL (80-96); MONOCYTES # (AUTO) 0.4 K/uL (0.1-1.30); MONOCYTES % (AUTO) 1.5 % (2.0-12.0); NEUTROPHILS # (AUTO) 22.3 K/uL (1.8-8.9); NEUTROPHILS % (AUTO) 96.2 % (43.0-81.0); PLATELET COUNT (AUTO) 277 K/uL (150-450); RED BLOOD CELL COUNT(AUTO) 3.19 MIL/uL (4.5-6.0); WHITE BLOOD COUNT (AUTO) 23.2 K/uL (4.3-11.0)
--- NOTE | 2021-10-22 06:44 | NUR ---
RN CLOSING NOTES: PT IN BED BOTH EYE OPENED, ALERT/ORIENTED X2 AND VERBALLY RESPONSIVE. ON NON-REBREATHER MASK WITH 15L/MIN, O2 SAT 99%. IV ACCESS ON LAURA PICC INTACT AND PATENT. NO S/S OF ACTIVE BLEEDING NOTED. NO C/O PAIN OR DISCOMFORT. NO ACUTE DISTRESS. GTUBE FEEDING TOLERATED WELL WITH RUNNING JEVITY @45CC/HR. ALL DUE MEDS GIVEN ORDERED. SAMS CATHETER IN PLACE, RUNNING BY GRAVITY. ALL SAFETY MEASURES IN PLACE. SIDE RAILS UP X3, BED IN LOWEST POSITION AND LOCKED. PLACE CALL LIGHT WITH IN REACH. WILL ENDORSE TO MORNING SHIFT NURSE.
[2021-10-22 07:02] LABS: CALCIUM, SERUM 8.8 mg/dL (8.5-10.1); CREATININE 0.9 mg/dL (0.6-1.3); PHOSPHORUS 2.7 mg/dL (2.5-4.9)
[2021-10-22] MEDS: PANTOPRAZOLE 40 MG/PACK PACK NG SCH (08:09)
[2021-10-22] MEDS: FERROUS SULFATE UDC 300 MG/5 ML UDC GT SCH (09:07)
[2021-10-22] MEDS: ZINC SULFATE 220 MG CAPSULE PO SCH (09:08)
[2021-10-22] MEDS: LEVETIRACETAM SOL (5 ML) 100 MG/ML UDC GT SCH ×2 (09:08→20:02)
[2021-10-22] MEDS: DOCUSATE SODIUM LIQ 100 MG/10 ML UDC GT SCH (09:08)
[2021-10-22] MEDS: OLANZAPINE 2.5 MG TABLET GT SCH (09:09)
[2021-10-22] MEDS: MULTIVITAMINS,THERAGRAN 1 UDTAB TABLET GT SCH (09:09)
[2021-10-22] MEDS: HYDROCORTISONE SOD SUCCINATE 100 MG/2 ML VIAL IV SCH (09:09)
[2021-10-22] MEDS: ASCORBIC ACID 500 MG TABLET GT SCH (09:09)
[2021-10-22] MEDS: THIAMINE HCL 100 MG TABLET GT SCH (09:09)
[2021-10-22] MEDS: PYRIDOXINE HCL 50 MG TABLET PO SCH (09:09)
--- NOTE | 2021-10-22 09:30 | NUR ---
RN NOTES RECEIVED PT FROM TELE BED, PT IS DRAWZY, RESPONDS TO VERBAL STIMULI, PT IS DIAPHORETIC, ON 6L FACE MASK, O2 SAT WNL, HR IN 120'S . T-99.4, SAMS DRAINING TO GRAVITY, R UPPER ARM PICC LINE SITE CLEAN ,DRY AND INTACT, TF AT 45 CC /HR RUNNING, SR UP x3, CALL LIGHT WITHIN EASY REACH, BED LOCKED AND IN LOWEST POSITION, CONTINUE TO MONITOR.
[2021-10-22] MEDS: PROSOURCE / PROSTAT (PYXIS) 30 ML UDC GT SCH (09:48)
[2021-10-22] MEDS: DAKINS QUARTER STRENGTH (0.125%) 480 ML BOTTLE TOP SCH (09:49)
[2021-10-22] MEDS: ENOXAPARIN SODIUM 60 MG/0.6 ML DISP.SYRIN SQ SCH ×2 (09:49→20:03)
[2021-10-22] MEDS: Z GUARD REMEDY 4 OZ OINT TP SCH (09:50)
[2021-10-22] MEDS: ISONIAZID (300 MG) 300 MG TABLET GT SCH (09:51)
[2021-10-22] MEDS ORDERED: VANCOMYCIN 1 GM in IV D5W 250 ML IV ONE (11:00)
[2021-10-22] MEDS: ACETYLCYSTEINE 10% SOLN 400 MG/4 ML VIAL NEB SCH ×3 (11:20→23:14)
[2021-10-22] MEDS: JEVITY 1.2 CAL 1,000 ML BOTTLE GT PRN (11:31)
[2021-10-22] MEDS ORDERED: ZOSYN IVPB 4.5 G in IV D5W 50ml IV SCH (12:00)
[2021-10-22] MEDS: PIPERACILLIN /TAZOBACTAM 3.375 G in IV D5W 50 ML IV SCH ×3 (12:41→23:08)
[2021-10-22] MEDS: ACETAMINOPHEN 325 MG TABLET PO PRN (12:47)
--- NOTE | 2021-10-22 14:00 | NUR ---
RN NOTES ORAL AND MOUTH SUCTIONING DONE , PT ON 4L O2 N/C , CONTINUE TO MONITOR .
--- NOTE | 2021-10-22 18:16 | NUR ---
RN NOTES PT REMAINS ON 4L O2 N/C , ON TELE ST , HR IN 100'S, O2 SAT WNL, TF AT 45CC /HR RUNNING, NO RESIDUAL NOTED, NO SIGNFICANT CHANGES NOTED ON THIS SHIFT , WILL ENDORSE TO TRIMMING MACHINE OPERATOR NURSE FOR CONTINUITY OF CARE .
--- NOTE | 2021-10-22 19:17 | NUR ---
RN NOTE RECEIVED PATIENT IN BED, AWAKE AND VERBAL. ABLE TO ANSWER YES OR NO QUESTIONS. NO S/S OF DISTRESS AT THIS TIME. BREATHING EVEN AND UNLABORED. NOTED WITH OXYGEN SATURATION OF 94 PERCENT VIA BEDSIDE MONITOR WITH GOOD WAVEFORM. PATIENT IS CURRENTLY ON NASAL CANNULA AT 4L/MIN. ON TELE MONITORING. PATIENT DENIES CHEST PAIN. SKIN IS WARM AND DRY TO TOUCH. WOUND DRESSING ON BILATERAL HIPS/FEET INTACT. RIGHT UPPER ARM PICC LINE INFUSING NS AT 10CC/HR. BILATERAL SOFT WRIST RESTRAINTS. RELEASED TO ASSIST PATIENT WITH RANGE OF MOTION. REAPPLIED PATIENT IS HOLDING ON TO SAMS CATHETER. 2 FINGER SPACE OBSERVED. INDWELLING SAMS CATHETER IN PLACE. INTACT, DRAINI NG YELLOW URINE BY GRAVITY. ASSISTED WITH TURNING AND REPOSITIONING. BED LOW, IN LOCKED POSITION. CALL LIGHT WITHIN REACH, WILL CONTINUE TO MONITOR. Addendum: 10/22/21 at 1933 by MAKAYLA JAMES RN PEG TUBE INTACT. INFUSING JEVITY AT 55 ML/HR. Addendum: 10/22/21 at 1936 by MAKAYLA JAMES RN JEVITY DECREASED TO 45 PER DIETARY RECOMMENDATION. NO RESIDUAL VIA PEG. HOB ELEVATED 35 DEGREES.
[2021-10-22] MEDS: IV NS 0.9% 250 ML IV PRN (19:43)
[2021-10-22] MEDS: VANCOMYCIN 0.75 GM in IV D5W 250 ML IV SCH (20:00)
[2021-10-22] MEDS: SENNOSIDES 8.6 MG TABLET GT SCH (21:08)
[2021-10-23] VITALS (24 sets, daily range): BP systolic 97–137; BP diastolic 50–77
--- NOTE | 2021-10-23 02:00 | NUR ---
RN NOTE PATIENT WITH MODERATE CONGESTION. PATIENT WAS SUCTIONED VIA NASOPHARYNGEAL BY RT, MODERATE AMOUNT OF THICK WHITE/PINK SECRETIONS. PATIENT WAS ON 5L/MIN VIA NASAL CANNULA, O2 SATURATION OF 90-91 PERCENT. SWITCHED TO FACE MASK 10L/MIN WITH SATURATION OF 98%. TURNED AND REPOSITIONED. WILL CONTINUE TO MONITOR.
[2021-10-23 04:37] LABS: EOSINOPHILS % (AUTO) 0.1 % (0.0-6.0); HEMATOCRIT 26 % (39-51); HEMOGLOBIN 8.5 g/dL (13.5-17.5); LYMPHOCYTES # (AUTO) 0.3 K/uL (0.8-4.8); MEAN CORPUSCULAR HGB CONC 33 g/dl (31.0-36.0); MEAN CORPUSCULAR VOLUME 90 fL (80-96); MONOCYTES # (AUTO) 0.3 K/uL (0.1-1.30); MONOCYTES % (AUTO) 2.3 % (2.0-12.0); NEUTROPHILS # (AUTO) 13.8 K/uL (1.8-8.9); NEUTROPHILS % (AUTO) 95.6 % (43.0-81.0); PLATELET COUNT (AUTO) 219 K/uL (150-450); WHITE BLOOD COUNT (AUTO) 14.4 K/uL (4.3-11.0)
[2021-10-23 04:51] LABS: CALCIUM, SERUM 8.4 mg/dL (8.5-10.1); CREATININE 0.9 mg/dL (0.6-1.3); POTASSIUM 3.4 mmol/L (3.5-5.1)
[2021-10-23] MEDS: PIPERACILLIN /TAZOBACTAM 3.375 G in IV D5W 50 ML IV SCH ×3 (05:11→18:17)
--- NOTE | 2021-10-23 06:58 | NUR ---
WOUND CARE CONSULT: RECEIVED CONSULT FOR FOOT WOUNDS WHICH ARE DRY AND WERE NOTED TO BE PRESENT ON ADMISSION. WILL REQUEST PODIATRY RE-EVALUATION. FOAM DRESSINGS IN PLACE AT THIS TIME AND OFFLOADING WITH PILLOWS. DISCUSSED SKIN PROTECTION WITH NURSING STAFF. MD IN AGREEMENT WITH PLAN OF CARE.
[2021-10-23] MEDS: PANTOPRAZOLE 40 MG/PACK PACK NG SCH (07:32)
--- NOTE | 2021-10-23 07:39 | NUR ---
RN NOTE PT RECEIVED AWAKE IN BED, RESPONSIVE TO STIMULI. ON SIMPLE MASK @8L. TOLERATING WELL. WITH O2 SAT 90-97%. GT IN PLACE, WITH FEEDING JEVITY 1.2 @45//HR, ASPIRATION PREC FOLLOWED. SAMS CATH IN PLACE DRAINING WELL WITH CLEAR YELLOW URINE. LAURA PICC LINE WITH NS @ TKO SETTINGS. SAFETY MAINTAINED. WILL CONTINUE TO MONITOR.
[2021-10-23] MEDS: ACETAMINOPHEN 325 MG TABLET PO PRN (07:48)
[2021-10-23] MEDS: ACETYLCYSTEINE 10% SOLN 400 MG/4 ML VIAL NEB SCH ×3 (08:17→23:06)
[2021-10-23] MEDS: VANCOMYCIN 0.75 GM in IV D5W 250 ML IV SCH ×2 (08:24→22:08)
--- NOTE | 2021-10-23 08:25 | NUR ---
RN NOTE PT NOTED WITH AXILLARY TEMPT OF 101.5. COOLING MEASURES DONE AND PRN TYLENOL GIVEN. WILL MONITOR.
[2021-10-23] MEDS: ASCORBIC ACID 500 MG TABLET GT SCH (09:02)
[2021-10-23] MEDS: ZINC SULFATE 220 MG CAPSULE PO SCH (09:02)
[2021-10-23] MEDS: DOCUSATE SODIUM LIQ 100 MG/10 ML UDC GT SCH (09:02)
[2021-10-23] MEDS: PYRIDOXINE HCL 50 MG TABLET PO SCH (09:02)
[2021-10-23] MEDS: MULTIVITAMINS,THERAGRAN 1 UDTAB TABLET GT SCH (09:02)
[2021-10-23] MEDS: LEVETIRACETAM SOL (5 ML) 100 MG/ML UDC GT SCH ×2 (09:02→21:08)
[2021-10-23] MEDS: OLANZAPINE 2.5 MG TABLET GT SCH (09:03)
[2021-10-23] MEDS: FERROUS SULFATE UDC 300 MG/5 ML UDC GT SCH (09:03)
[2021-10-23] MEDS: ISONIAZID (300 MG) 300 MG TABLET GT SCH (09:03)
[2021-10-23] MEDS: THIAMINE HCL 100 MG TABLET GT SCH (09:03)
[2021-10-23] MEDS: PROSOURCE / PROSTAT (PYXIS) 30 ML UDC GT SCH (09:06)
[2021-10-23] MEDS: ENOXAPARIN SODIUM 60 MG/0.6 ML DISP.SYRIN SQ SCH ×2 (09:08→21:10)
[2021-10-23] MEDS: Z GUARD REMEDY 4 OZ OINT TP SCH (09:11)
--- NOTE | 2021-10-23 09:40 | NUR ---
RN NOTE PT TEMPT 99.5 ON R/C. WILL CONTINUE TO MONITOR,
--- NOTE | 2021-10-23 09:42 | NUR ---
RN NOTE RESPI TX DONE BY RT AND CHANGED O2 TO NC @ 6L. PT TOLERATING WELL WITH O2 SAT OF 97%. WILL CONTINUE TO MONITOR.
[2021-10-23] MEDS: DAKINS QUARTER STRENGTH (0.125%) 480 ML BOTTLE TOP SCH (09:44)
[2021-10-23] MEDS ORDERED: POTASSIUM CHLORIDE 20 MEQ POWDER PACKET GT SCH (10:00)
[2021-10-23] MEDS: JEVITY 1.2 CAL 1,000 ML BOTTLE GT PRN (13:27)
[2021-10-23] MEDS: IV NS 0.9% 250 ML IV PRN (17:03)
--- NOTE | 2021-10-23 18:51 | NUR ---
RN NOTE PT RESTING ASLEEP IN BED, RESPONSIVE TO STIMULI. ON O2 VIA NC @6L. TOLERATING WELL. WITH O2 SAT 95-100%. GT IN PLACE, WITH FEEDING JEVITY 1.2 @45//HR, ASPIRATION PREC FOLLOWED. SAMS CATH IN PLACE DRAINING WELL WITH CLEAR YELLOW URINE. LAURA PICC LINE WITH NS @ TKO SETTINGS. SAFETY MAINTAINED. WILL CONTINUE TO MONITOR. ALL DUE MEDS GIVEN. WOUND CARE DONE.
--- NOTE | 2021-10-23 20:00 | NUR ---
ICU NOTES Received patient resting in no acute distress.Dx: Acute Hypoxemic Respiratory Failure. Respiration even and unlabored continue on 6L NC saturation 100%.Moderate secretions suctioned PRN.VS stable.SRST.GT feeding in progress no residual noted.Maintained HOB elevated.FC to gravity.Turned and repositioned off loading pressure points.Continue monitoring.
[2021-10-23] MEDS: SENNOSIDES 8.6 MG TABLET GT SCH (21:09)
[2021-10-24] VITALS (28 sets, daily range): BP systolic 97–141; BP diastolic 36–76
[2021-10-24] MEDS: PIPERACILLIN /TAZOBACTAM 3.375 G in IV D5W 50 ML IV SCH ×5 (00:48→23:58)
[2021-10-24 05:21] LABS: CALCIUM, SERUM 8.4 mg/dL (8.5-10.1); CREATININE 0.7 mg/dL (0.6-1.3); POTASSIUM 3.3 mmol/L (3.5-5.1)
--- NOTE | 2021-10-24 06:30 | NUR ---
END NOTE Patient resting verbally responsive and follows simple commands.VSS.SR/ST.RT tried to titrate O2 down to 4LNC during the night but patient saturation down to 90% so back on 6LNC.Patient unable to expectorate sputum.Deep naso tracheal suctioning of secretions done several times by Jessica,RT obtained moderate amount.Patient tolerating GT feeding well.No residual noted.Bathed and complete linens changed.Oral care done.Wound care done.Due medications administered.Turned and repositioned off loading pressure points.NAD.
[2021-10-24] MEDS: ACETAMINOPHEN 325 MG TABLET PO PRN (07:41)
[2021-10-24] MEDS: PANTOPRAZOLE 40 MG/PACK PACK NG SCH (07:41)
--- NOTE | 2021-10-24 07:50 | NUR ---
RN OPENING NOTES RECEIVED PT IN BED A/O X 2. PT ON 6L VIA NC SATING AT 98%. TELE MONITOR READS ST. SAMS PATENT AND DRAINING CLEAR YELLOW URINE. GTUBE FEEDING RUNNING JEVITY @ 45CC/HR. IV ACCESS NOTED AT [facility] PICC RUNNING TKO. ALL SAFETY MEASURES IN PLACE, WILL CONTINUE TO MONITOR THROUGHOUT SHIFT.
[2021-10-24] MEDS: ACETYLCYSTEINE 10% SOLN 400 MG/4 ML VIAL NEB SCH ×3 (08:09→23:46)
[2021-10-24] MEDS: ZINC SULFATE 220 MG CAPSULE PO SCH (08:10)
[2021-10-24] MEDS: MULTIVITAMINS,THERAGRAN 1 UDTAB TABLET GT SCH (08:10)
[2021-10-24] MEDS: THIAMINE HCL 100 MG TABLET GT SCH (08:10)
[2021-10-24] MEDS: ASCORBIC ACID 500 MG TABLET GT SCH (08:10)
[2021-10-24] MEDS: OLANZAPINE 2.5 MG TABLET GT SCH (08:10)
[2021-10-24] MEDS: ISONIAZID (300 MG) 300 MG TABLET GT SCH (08:11)
[2021-10-24] MEDS: FERROUS SULFATE UDC 300 MG/5 ML UDC GT SCH (08:11)
[2021-10-24] MEDS: DOCUSATE SODIUM LIQ 100 MG/10 ML UDC GT SCH (08:11)
[2021-10-24] MEDS: PROSOURCE / PROSTAT (PYXIS) 30 ML UDC GT SCH (08:11)
[2021-10-24] MEDS: PYRIDOXINE HCL 50 MG TABLET PO SCH (08:11)
[2021-10-24] MEDS: LEVETIRACETAM SOL (5 ML) 100 MG/ML UDC GT SCH ×2 (08:11→21:06)
[2021-10-24] MEDS: VANCOMYCIN 0.75 GM in IV D5W 250 ML IV SCH (08:12)
[2021-10-24] MEDS: DAKINS QUARTER STRENGTH (0.125%) 480 ML BOTTLE TOP SCH (08:13)
[2021-10-24] MEDS: Z GUARD REMEDY 4 OZ OINT TP SCH (08:13)
[2021-10-24] MEDS: ENOXAPARIN SODIUM 60 MG/0.6 ML DISP.SYRIN SQ SCH ×2 (08:24→21:07)
[2021-10-24] MEDS ORDERED: POTASSIUM CHLORIDE 20 MEQ POWDER PACKET GT ONE (09:00)
[2021-10-24] MEDS: JEVITY 1.2 CAL 1,000 ML BOTTLE GT PRN (14:33)
--- NOTE | 2021-10-24 17:14 | NUR ---
PT SATING AT 100% ON 6L ALL DAY. LOWERED O2 TO 4L, STILL SATING 100%.
--- NOTE | 2021-10-24 19:15 | NUR ---
RN CLOSING NOTES PT RESTING IN BED A/O X2-3. PT ON 4L VIA NC SATING AT 100%. PT TOLERATED ALL TREATMENTS WELL, PT KEPT CLEAN, ALL NEEDS MET THROUGHOUT SHIFT. PT ENDORSED TO DIRECTOR SAFETY COUNCIL RN FOR SYBIL. ALL SAFETY MEASURES IN PLACE, BED IN LOWEST LOCKED POSITION, CALL LIGHT WITHIN REACH.
[2021-10-24] MEDS: VANCOMYCIN 1 GM in IV D5W 250 ML IV SCH (20:00)
--- NOTE | 2021-10-24 20:00 | NUR ---
ICU NOTES Patient awake alert oriented 1-2 but forgetful.No acute distress noted.On high fowlers position watching TV.Respiration even and unlabored coughing productively but unable to expectorate.RT at bedside suctioning secretions.Maintain on O2 6LNC sat 99%-100%.SR/ST low 100's.GT feeding infusing with minimal residual.FC.Turned and repositioned.Continue monitoring.
[2021-10-24] MEDS: SENNOSIDES 8.6 MG TABLET GT SCH (22:18)
[2021-10-25] VITALS (43 sets, daily range): BP systolic 100–157; BP diastolic 16–111
[2021-10-25] MEDS: IV NS 0.9% 250 ML IV PRN (02:28)
[2021-10-25 04:58] LABS: BASOPHILS % (AUTO) 0.3 % (0.0-2.0); EOSINOPHILS % (AUTO) 2.6 % (0.0-6.0); HEMATOCRIT 23 % (39-51); HEMOGLOBIN 7.5 g/dL (13.5-17.5); LYMPHOCYTES # (AUTO) 0.7 K/uL (0.8-4.8); LYMPHOCYTES % (AUTO) 10.1 % (20.0-44.0); MEAN CORPUSCULAR HGB CONC 33 g/dl (31.0-36.0); MEAN CORPUSCULAR VOLUME 91 fL (80-96); MONOCYTES # (AUTO) 0.4 K/uL (0.1-1.30); MONOCYTES % (AUTO) 5.8 % (2.0-12.0); NEUTROPHILS # (AUTO) 5.5 K/uL (1.8-8.9); NEUTROPHILS % (AUTO) 81.2 % (43.0-81.0); PLATELET COUNT (AUTO) 195 K/uL (150-450); RED BLOOD CELL COUNT(AUTO) 2.52 MIL/uL (4.5-6.0); WHITE BLOOD COUNT (AUTO) 6.8 K/uL (4.3-11.0)
[2021-10-25 05:11] LABS: CALCIUM, SERUM 8.4 mg/dL (8.5-10.1); CREATININE 0.8 mg/dL (0.6-1.3); MAGNESIUM 1.9 mg/dL (1.8-2.4); PHOSPHORUS 2.7 mg/dL (2.5-4.9); POTASSIUM 3.5 mmol/L (3.5-5.1)
--- NOTE | 2021-10-25 05:37 | NUR ---
RT NOTE PT SUCTIONED NASALLY T/O SHIFT. NO COMPLICATIONS NOTED. LARGE THICK WHITE/VALLADARES SECRETIONS NOTED. B/S IMPROVED POST SX. NO RESPIRATORY DISTRESS NOTED.
[2021-10-25] MEDS: PIPERACILLIN /TAZOBACTAM 3.375 G in IV D5W 50 ML IV SCH ×4 (05:41→23:08)
--- NOTE | 2021-10-25 06:39 | NUR ---
END NOTE Patient resting in no acute distress.SR/ST.VSS.Remain with O2 at 6LNC well tolerated.Patient tolerating nutrition well.BM X1 large amount soft brown stool.Kept clean and dry.Oral hygiene done.AM care done.Wound care done.Turned and repositioned q 2 hrs off loading pressure points. No significant change noted during the shift.
--- NOTE | 2021-10-25 07:18 | NUR ---
RN OPENING NOTE PATIENT RECEIVED IN BED, AWAKE, A&OX1-2. PATIENT ON 6L O2 NC SAT 100% ON BEDSIDE MONITOR, SINUS TACH AT 103. SAMS CATH IN PLACE, PATENT AND DRAINING CLEAR URINE. GTUBE IN PLACE RUNNING JEVITY AT 45CC/HR, 20CC RESIDUAL NOTED. RIGHT UA PICC LINE IN PLACE, NS RUNNING TKO. BED LOCKED AND IN LOWEST POSITION, CALL LIGHT WITHIN REACH, 3 SIDE RAILS UP.
[2021-10-25] MEDS: ACETYLCYSTEINE 10% SOLN 400 MG/4 ML VIAL NEB SCH ×3 (07:44→23:55)
[2021-10-25] MEDS: VANCOMYCIN 1 GM in IV D5W 250 ML IV SCH ×2 (08:09→20:25)
[2021-10-25] MEDS: DOCUSATE SODIUM LIQ 100 MG/10 ML UDC GT SCH (08:09)
[2021-10-25] MEDS: LEVETIRACETAM SOL (5 ML) 100 MG/ML UDC GT SCH ×2 (08:09→21:50)
[2021-10-25] MEDS: FERROUS SULFATE UDC 300 MG/5 ML UDC GT SCH (08:09)
[2021-10-25] MEDS: ENOXAPARIN SODIUM 60 MG/0.6 ML DISP.SYRIN SQ SCH (08:11)
[2021-10-25] MEDS: THIAMINE HCL 100 MG TABLET GT SCH (08:11)
[2021-10-25] MEDS: OLANZAPINE 2.5 MG TABLET GT SCH (08:11)
[2021-10-25] MEDS: ASCORBIC ACID 500 MG TABLET GT SCH (08:11)
[2021-10-25] MEDS: PYRIDOXINE HCL 50 MG TABLET PO SCH (08:11)
[2021-10-25] MEDS: ZINC SULFATE 220 MG CAPSULE PO SCH (08:11)
[2021-10-25] MEDS: PANTOPRAZOLE 40 MG/PACK PACK NG SCH (08:11)
[2021-10-25] MEDS: ISONIAZID (300 MG) 300 MG TABLET GT SCH (08:11)
[2021-10-25] MEDS: MULTIVITAMINS,THERAGRAN 1 UDTAB TABLET GT SCH (08:11)
[2021-10-25] MEDS: DAKINS QUARTER STRENGTH (0.125%) 480 ML BOTTLE TOP SCH (08:12)
[2021-10-25] MEDS: Z GUARD REMEDY 4 OZ OINT TP SCH (08:13)
[2021-10-25] MEDS: PROSOURCE / PROSTAT (PYXIS) 30 ML UDC GT SCH (09:26)
[2021-10-25] MEDS: ACETAMINOPHEN 325 MG TABLET PO PRN (11:03)
[2021-10-25] MEDS: JEVITY 1.2 CAL 1,000 ML BOTTLE GT PRN (18:47)
--- NOTE | 2021-10-25 18:54 | NUR ---
RN CLOSING NOTE PATIENT REMAINS IN BED, AWAKE, A&OX1-2. PATIENT ON 6L O2 NC SAT 98% ON BEDSIDE MONITOR, SINUS RHYTHM ON MONITOR. SAMS CATH IN PLACE, PATENT AND DRAINING AGUS COLOR URINE GTUBE IN PLACE RUNNING JEVITY AT 45CC/HR. RIGHT UA PICC LINE IN PLACE, NS RUNNING TKO. BED LOCKED AND IN LOWEST POSITION, CALL LIGHT WITHIN REACH, 3 SIDE RAILS UP. WILL ENDORSE TO BOWLING OR SKATING FRONT DESK CLERK RN FOR SYBIL.
--- NOTE | 2021-10-25 19:40 | NUR ---
RN OPENING NOTES: RECEIVED PT IN BED AWAKE, ALERT/ORIENTED X2 AND VERBALLY RESPONSIVE. ON 6L VIA N/C AND PT TOLERATED WELL. O2 SAT 100%. IV ACCESS ON LAURA PICC INTACT AND PATENT. NO S/S OF ACTIVE BLEEDING NOTED. NO C/O PAIN OR DISCOMFORT. NO ACUTE DISTRESS. ON GTUBE FEEDING WELL TOLERATED WELL, JEVITY @45CC/HR. SAMS CATHETER I N PLACE, RUNNING BY GRAVITY. NOTED AGUS COLOR URINE. ALL SAFETY MEASURES IN PLACE. SIDE RAILS UP X3, BED IN LOWEST POSITION AND LOCKED. PLACE CALL LIGHT WITH IN REACH. WILL CONTINUE TO MONITOR
[2021-10-25] MEDS: SENNOSIDES 8.6 MG TABLET GT SCH (21:49)
[2021-10-26] VITALS (24 sets, daily range): BP systolic 98–144; BP diastolic 48–78
[2021-10-26 04:36] LABS: CALCIUM, SERUM 8.3 mg/dL (8.5-10.1); CREATININE 0.8 mg/dL (0.6-1.3); POTASSIUM 3.6 mmol/L (3.5-5.1)
[2021-10-26] MEDS: PIPERACILLIN /TAZOBACTAM 3.375 G in IV D5W 50 ML IV SCH ×3 (05:47→17:01)
--- NOTE | 2021-10-26 06:35 | NUR ---
RN CLOSING NOTES: PT IN BED AWAKE, ALERT/ORIENTED X2 AND VERBALLY RESPONSIVE. ON 4L VIA N/C AND PT TOLERATED WELL. O2 SAT 100%. IV ACCESS ON LAURA PICC INTACT AND PATENT. NO S/S OF ACTIVE BLEEDING NOTED. NO C/O PAIN OR DISCOMFORT. NO ACUTE DISTRESS. ON GTUBE FEEDING WELL TOLERATED, JEVITY @45CC/HR. SAMS CATHETER I N PLACE, RUNNING BY GRAVITY. NOTED AGUS COLOR URINE. ALL DUE MEDS GIVEN ORDERED. ALL SAFETY MEASURES IN PLACE. SIDE RAILS UP X3, BED IN LOWEST POSITION AND LOCKED. PLACE CALL LIGHT WITH IN REACH. WILL ENDORSE TO MORNING SHIFT NURSE.
--- NOTE | 2021-10-26 07:05 | NUR ---
RN NOTES: RECEIVED PT ON BED AWAKE, ALERT/ORIENTED X1 AND VERBALLY RESPONSIVE. ON 6L O2 N/C AND PT TOLERATED WELL. O2 SAT WNL. IV ACCESS ON LAURA PICC INTACT AND PATENT. NO S/S OF ACTIVE BLEEDING NOTED. NO C/O PAIN OR DISCOMFORT. NO ACUTE DISTRESS. ON G-TUBE FEEDING WELL TOLERATED WELL, JEVITY @45CC/HR. SAMS CATHETER IN PLACE, RUNNING BY GRAVITY. NOTED AGUS COLOR URINE. ALL SAFETY MEASURES IN PLACE. SIDE RAILS UP X3, BED IN LOWEST POSITION AND LOCKED. PLACE CALL LIGHT WITH IN REACH. WILL CONTINUE TO MONITOR
[2021-10-26 07:27] LABS: BASOPHILS % (AUTO) 0.6 % (0.0-2.0); EOSINOPHILS % (AUTO) 2.7 % (0.0-6.0); HEMATOCRIT 23 % (39-51); HEMOGLOBIN 7.6 g/dL (13.5-17.5); LYMPHOCYTES # (AUTO) 0.7 K/uL (0.8-4.8); LYMPHOCYTES % (AUTO) 10.4 % (20.0-44.0); MEAN CORPUSCULAR HGB CONC 33 g/dl (31.0-36.0); MEAN CORPUSCULAR VOLUME 91 fL (80-96); MONOCYTES # (AUTO) 0.4 K/uL (0.1-1.30); MONOCYTES % (AUTO) 6.7 % (2.0-12.0); NEUTROPHILS % (AUTO) 79.6 % (43.0-81.0); PLATELET COUNT (AUTO) 188 K/uL (150-450); RED BLOOD CELL COUNT(AUTO) 2.56 MIL/uL (4.5-6.0); WHITE BLOOD COUNT (AUTO) 6.3 K/uL (4.3-11.0)
[2021-10-26] MEDS: ACETYLCYSTEINE 10% SOLN 400 MG/4 ML VIAL NEB SCH ×3 (08:15→23:49)
[2021-10-26] MEDS: DOCUSATE SODIUM LIQ 100 MG/10 ML UDC GT SCH (08:25)
[2021-10-26] MEDS: PYRIDOXINE HCL 50 MG TABLET PO SCH (08:26)
[2021-10-26] MEDS: PANTOPRAZOLE 40 MG/PACK PACK NG SCH (08:26)
[2021-10-26] MEDS: FERROUS SULFATE UDC 300 MG/5 ML UDC GT SCH (08:26)
[2021-10-26] MEDS: THIAMINE HCL 100 MG TABLET GT SCH (08:26)
[2021-10-26] MEDS: LEVETIRACETAM SOL (5 ML) 100 MG/ML UDC GT SCH ×2 (08:26→21:32)
[2021-10-26] MEDS: OLANZAPINE 2.5 MG TABLET GT SCH (08:26)
[2021-10-26] MEDS: ISONIAZID (300 MG) 300 MG TABLET GT SCH (08:26)
[2021-10-26] MEDS: ZINC SULFATE 220 MG CAPSULE PO SCH (08:26)
[2021-10-26] MEDS: MULTIVITAMINS,THERAGRAN 1 UDTAB TABLET GT SCH (08:26)
[2021-10-26] MEDS: ASCORBIC ACID 500 MG TABLET GT SCH (08:29)
[2021-10-26] MEDS: DAKINS QUARTER STRENGTH (0.125%) 480 ML BOTTLE TOP SCH (08:29)
[2021-10-26] MEDS: VANCOMYCIN 1 GM in IV D5W 250 ML IV SCH ×2 (08:29→21:24)
[2021-10-26] MEDS: Z GUARD REMEDY 4 OZ OINT TP SCH (08:29)
[2021-10-26] MEDS: PROSOURCE / PROSTAT (PYXIS) 30 ML UDC GT SCH (09:06)
--- NOTE | 2021-10-26 09:55 | NUR ---
RN NOTES PT TRANSFERRED TO ROOM 315-1 TELE STATUS VIA ACLS PROTOCAL IN STABLE CONDITION, REPORT GIVEN TO RN FOR CONTINUITY OF CARE . NO BELONGINGS NOTED.
--- NOTE | 2021-10-26 10:00 | NUR ---
TRANSPLANT RN NOTES RECEIVED PATIENT FROM ICU ENDORSED BY FR[facility]DIE VIA HOSPITAL BED. PATIENT IS A/O X2, CONFUSED. ON O2 AT 2LPM VIA NASAL CANNULA TOLERATING WELL. NO SOB NOTED. NOT IN DISTRESS. WITH IV ACCESS AT THE LEFT UPPER ARM PICC LINE WITH NS AT TKO. IV ACCESS IS PATENT AND INTACT. ON JEVITY FEEDING AT 45ML/HR TOLERATING FEEDING WELL. PER ENDORSEMENT, PATIENT IS FOR NASOPHARYNGEAL SUCTIONING Q2H OR PRN FOR PRESENCE OF SECRETIONS. ON TELE MONITOR CURRENTLY READING SINUS RHYTHM AT 76BPM. SAFETY MEASURES IN PLACED. CALL LIGHT WITHIN REACH. BED ON LOWEST LOCKED POSITION, SIDE RAILS UP X2. WILL CONTINUE TO MONITOR.
[2021-10-26] MEDS: IV NS 0.9% 250 ML IV PRN (11:24)
--- NOTE | 2021-10-26 12:00 | NUR ---
RN NOTES NASOPHARYNGEAL SUCTIONING HAS BEEN DONE BY RT STODDARD WITH O2 SAT OF 98%.
--- NOTE | 2021-10-26 18:53 | NUR ---
LEGAL INSTRUMENTS EXAMINER CLOSING NOTES PATIENT RESTING ON BED AND A/O X2, CONFUSED. ON O2 AT 3LPM VIA NASAL CANNULA TOLERATING WELL. NO SOB NOTED. NOT IN DISTRESS. WITH IV ACCESS AT THE LEFT UPPER ARM PICC LINE WITH NS AT TKO. IV ACCESS IS PATENT AND INTACT. ON JEVITY FEEDING AT 45ML/HR TOLERATING FEEDING WELL. PATIENT IS FOR NASOPHARYNGEAL SUCTIONING Q2H OR PRN FOR PRESENCE OF SECRETIONS. ON TELE MONITOR CURRENTLY READING SINUS RHYTHM AT 78BPM. DUE MEDS GIVEN. SAFETY MEASURES IN PLACED. CALL LIGHT WITHIN REACH. BED ON LOWEST LOCKED POSITION, SIDE RAILS UP X2. WILL ENDORSE TO NEXT SHIFT FOR SYBIL.
[2021-10-26] MEDS: SENNOSIDES 8.6 MG TABLET GT SCH (21:32)
[2021-10-27] VITALS: BP 121/76
[2021-10-27] MEDS: PIPERACILLIN /TAZOBACTAM 3.375 G in IV D5W 50 ML IV SCH ×2 (00:17→05:48)
[2021-10-27] MEDS: ACETAMINOPHEN 325 MG TABLET PO PRN ×2 (01:35→08:21)
[2021-10-27] MEDS: JEVITY 1.2 CAL 1,000 ML BOTTLE GT PRN (01:51)
[2021-10-27 04:00] VITALS: BP 131/72
[2021-10-27 06:43] LABS: BASOPHILS % (AUTO) 0.4 % (0.0-2.0); EOSINOPHILS % (AUTO) 2.9 % (0.0-6.0); HEMATOCRIT 25 % (39-51); HEMOGLOBIN 8.2 g/dL (13.5-17.5); LYMPHOCYTES # (AUTO) 0.9 K/uL (0.8-4.8); LYMPHOCYTES % (AUTO) 13.1 % (20.0-44.0); MEAN CORPUSCULAR HGB CONC 33 g/dl (31.0-36.0); MEAN CORPUSCULAR VOLUME 90 fL (80-96); MONOCYTES # (AUTO) 0.4 K/uL (0.1-1.30); MONOCYTES % (AUTO) 6.2 % (2.0-12.0); NEUTROPHILS # (AUTO) 5.4 K/uL (1.8-8.9); NEUTROPHILS % (AUTO) 77.4 % (43.0-81.0); PLATELET COUNT (AUTO) 188 K/uL (150-450); RED BLOOD CELL COUNT(AUTO) 2.76 MIL/uL (4.5-6.0)
--- NOTE | 2021-10-27 07:00 | NUR ---
RN NOTE PT AWAKE, A/OX2, VERBAL, GARBLED. RESPIRATIONS EVEN/UNLABORED. ON O2 @3LPM VIA NC. PT WITH INCREASED SECRETIONS, DESATS TO 80'S, SUCTIONED Q2HR AND NEEDED, OBTAINED MOD. AMT OF THICK WHITISH/YELLOWISH SECRETIONS. SATS GO BACK UP TO 96-99% AFTER SUCTIONING. QUITA WELL. IV ACCESS: LAURA PICC LINE INTACT/PATENT/FLUSHES WELL. GT INTACT/PATENT, NO RESIDUALS NOTED. GTF JEVITY @45ML/HR, QUITA WELL. F/C DRAINING CLEAR YELLOW URINE, TOTAL OUTPUT 400CC THIS SHIFT. PT IN NO ACUTE DISTRESS. SAFETY MEASURES MAINTAINED. ENDORSED TO NEXT SHIFT NURSE.
[2021-10-27] MEDS: PANTOPRAZOLE 40 MG/PACK PACK NG SCH (07:28)
--- NOTE | 2021-10-27 07:29 | NUR ---
CAMPAIGN MANAGEMENT SPECIALIST OPENING NOTES RECEIVED PATIENT AWAKE IN BED IN NO ACUTE SIGNS OF DISTRESS. A/O X. ABLE TO COMMUNICATE VERBALLY. CONFUSED AND FORGETFUL. ON O2 AT 5LPM VIA N/C AT THIS TIME, TOLERATING WELL, NO C/O SOB VOICED AT THIS TIME. PT WITH B/L SOFT WRIST RESTRAINTS, CIRCULATIONS WNL. LEFT UPPER ARM PICC LINE INTACT WITH NS AT TKO. ON GTF OF JEVITY 1.2 AT 45ML/HR, TOLERATING FEEDING WELL. ON TELE MONITOR CURRENTLY READING SINUS TACH, HR 102, NO C/O CARDIAC DISTRESS. SAMS IN PLACE WITH CLEAR YELLOW URINE OUTPUT NOTED. ASPIRATION AND SAFETY MEASURES IN PLACED: HOB ELEVATED, CALL LIGHT WITHIN REACH, BED ON LOWEST LOCKED POSITION, SIDE RAILS UP X2. WILL CONTINUE TO MONITOR PT ACCORDINGLY. .
[2021-10-27 08:00] VITALS: BP 121/80
[2021-10-27 08:05] LABS: CREATININE 0.8 mg/dL (0.6-1.3); POTASSIUM 3.7 mmol/L (3.5-5.1)
[2021-10-27] MEDS: ASCORBIC ACID 500 MG TABLET GT SCH (08:20)
[2021-10-27] MEDS: DOCUSATE SODIUM LIQ 100 MG/10 ML UDC GT SCH (08:20)
[2021-10-27] MEDS: LEVETIRACETAM SOL (5 ML) 100 MG/ML UDC GT SCH ×2 (08:20→21:17)
[2021-10-27] MEDS: FERROUS SULFATE UDC 300 MG/5 ML UDC GT SCH (08:20)
[2021-10-27] MEDS: ISONIAZID (300 MG) 300 MG TABLET GT SCH (08:20)
[2021-10-27] MEDS: OLANZAPINE 2.5 MG TABLET GT SCH (08:20)
[2021-10-27] MEDS: Z GUARD REMEDY 4 OZ OINT TP SCH (08:21)
[2021-10-27] MEDS: PROSOURCE / PROSTAT (PYXIS) 30 ML UDC GT SCH (08:22)
[2021-10-27] MEDS: THIAMINE HCL 100 MG TABLET GT SCH (08:23)
[2021-10-27] MEDS: MULTIVITAMINS,THERAGRAN 1 UDTAB TABLET GT SCH (08:23)
[2021-10-27] MEDS: PYRIDOXINE HCL 50 MG TABLET PO SCH (08:23)
[2021-10-27] MEDS: ZINC SULFATE 220 MG CAPSULE PO SCH (08:25)
[2021-10-27] MEDS: DAKINS QUARTER STRENGTH (0.125%) 480 ML BOTTLE TOP SCH (08:25)
--- NOTE | 2021-10-27 08:27 | NUR ---
RN NOTES RESPIRATORY THERAPIST SUCTIONED PT ORALLY AND NASALLY THEN LOWERED PT 02 TO 3LPM VIA N/C, PT TOLERATING WELL WITH SP02 NOTED AT 97-99%. WILL CONTINUE TO MONITOR.
[2021-10-27 08:40] LABS: CALCIUM, SERUM 9.2 mg/dL (8.5-10.1)
[2021-10-27] MEDS: ACETYLCYSTEINE 10% SOLN 400 MG/4 ML VIAL NEB SCH ×3 (08:55→23:43)
[2021-10-27] MEDS: VANCOMYCIN 1 GM in IV D5W 250 ML IV SCH (09:17)
[2021-10-27] MEDS: METRONIDAZOLE 500 MG TABLET PO SCH ×2 (12:09→21:18)
[2021-10-27] MEDS: CEFEPIME 2 GM in IV D5W 100 ML IV SCH ×2 (12:09→21:12)
[2021-10-27] MEDS ORDERED: CEFEPIME 1 GM in IV D5W 50 ML IV SCH (17:00)
--- NOTE | 2021-10-27 18:44 | NUR ---
DOLLY DRIVER CLOSING NOTES PATIENT AWAKE IN BED IN NO ACUTE SIGNS OF DISTRESS. A/O X 1-2. ALL NEEDS ATTENDED TO. CONFUSED AND FORGETFUL. STABLE ON 3L VIA N/C AT THIS TIME, TOLERATING WELL, NO C/O SOB VOICED AT THIS TIME. PT WITH B/L SOFT WRIST RESTRAINTS, CIRCULATIONS WNL. LEFT UPPER ARM PICC LINE INTACT WITH NS AT TKO. ON GTF OF JEVITY 1.2 AT 45ML/HR, TOLERATING FEEDING WELL. TELE MONITOR CURRENTLY READING SINUS RHYTHM HR 96, NO C/O CARDIAC DISTRESS. SAMS IN PLACE WITH CLEAR AGUS/TEA URINE OUTPUT NOTED. ALL DUE MEDS GIVEN. ASPIRATION AND SAFETY MEASURES MAINTAINED: HOB ELEVATED, CALL LIGHT WITHIN REACH, BED ON LOWEST LOCKED POSITION, SIDE RAILS UP X3. WILL ENDORSE TO NEXT SHIFT FOR SYBIL.
[2021-10-27 20:28] VITALS: BP 144/85
[2021-10-27] MEDS: SENNOSIDES 8.6 MG TABLET GT SCH (21:18)
[2021-10-27] MEDS: THERAHONEY GEL 1.5 OZ TUBE TP SCH (21:19)
--- NOTE | 2021-10-27 23:34 | NUR ---
MS/TELE/RN PATIENT IS STILL AWAKE, APPEARS COMFORTABLE,. NO SIGNS OF DISTRESS NOTED, HOB ELEVATED, G TUBE FEEDING INFUSING, CALL LIGHT IN REACH, WILL CONTINUE TO MONITOR.
[2021-10-28] VITALS: BP 118/65
--- NOTE | 2021-10-28 00:53 | NUR ---
MS/TELE/RN PATIENT IS SLEEPNG
[2021-10-28 04:00] VITALS: BP 118/73
[2021-10-28] MEDS: JEVITY 1.2 CAL 1,000 ML BOTTLE GT PRN (04:11)
--- NOTE | 2021-10-28 04:28 | NUR ---
MS/TELE/RN MORNING CARE DONE, TOTAL LINEN CHANGE RENDERED, GOOD SKIN CARE PROVIDED. REPOSITIONED TO COMFORT, WILL CONTINUE TO MONITOR.
[2021-10-28] MEDS: CEFEPIME 2 GM in IV D5W 100 ML IV SCH ×2 (04:44→12:14)
[2021-10-28] MEDS: METRONIDAZOLE 500 MG TABLET PO SCH ×2 (04:45→12:14)
--- NOTE | 2021-10-28 06:16 | NUR ---
MS/TELE/RN PATIENT IS SLEEPING, APPEARS COMFORTABLE, NO SIGNS OF DISTRESS NOTED, HOB ELEVATED, CALL LIGHT IN REACH, ALL NEEDS ATTENDED AT THIS TIME, WILL CONTINUE TO MONITOR.
[2021-10-28 06:33] LABS: BASOPHILS % (AUTO) 0.2 % (0.0-2.0); EOSINOPHILS % (AUTO) 2.6 % (0.0-6.0); HEMATOCRIT 24 % (39-51); HEMOGLOBIN 7.8 g/dL (13.5-17.5); LYMPHOCYTES # (AUTO) 0.8 K/uL (0.8-4.8); LYMPHOCYTES % (AUTO) 10.4 % (20.0-44.0); MEAN CORPUSCULAR HGB CONC 33 g/dl (31.0-36.0); MEAN CORPUSCULAR VOLUME 90 fL (80-96); MONOCYTES # (AUTO) 0.5 K/uL (0.1-1.30); MONOCYTES % (AUTO) 6.5 % (2.0-12.0); NEUTROPHILS # (AUTO) 6.1 K/uL (1.8-8.9); NEUTROPHILS % (AUTO) 80.3 % (43.0-81.0); PLATELET COUNT (AUTO) 180 K/uL (150-450); RED BLOOD CELL COUNT(AUTO) 2.65 MIL/uL (4.5-6.0); WHITE BLOOD COUNT (AUTO) 7.5 K/uL (4.3-11.0)
[2021-10-28 06:49] LABS: CALCIUM, SERUM 9.2 mg/dL (8.5-10.1); CREATININE 0.8 mg/dL (0.6-1.3); POTASSIUM 4.2 mmol/L (3.5-5.1)
--- NOTE | 2021-10-28 07:05 | NUR ---
MOLD YARD WORKER OPENING NOTES RECEIVED PATIENT AWAKE IN BED IN NO ACUTE SIGNS OF DISTRESS. A/O X 1. ABLE TO COMMUNICATE VERBALLY. CONFUSED AND FORGETFUL. ON O2 AT 3L VIA N/C AT THIS TIME, TOLERATING WELL, NO C/O SOB VOICED AT THIS TIME. PT WITH B/L SOFT WRIST RESTRAINTS, CIRCULATIONS WNL. LEFT UPPER ARM PICC LINE INTACT WITH NS AT TKO. ON GTF OF JEVITY 1.2 AT 45ML/HR, TOLERATING FEEDING WELL. ON TELE MONITOR CURRENTLY READING SINUS TACH, HR 105, NO C/O CARDIAC DISTRESS. SAMS IN PLACE WITH CLEAR YELLOW URINE OUTPUT NOTED. ASPIRATION AND SAFETY MEASURES IN PLACED: HOB ELEVATED, CALL LIGHT WITHIN REACH, BED ON LOWEST LOCKED POSITION, SIDE RAILS UP X2. WILL CONTINUE TO MONITOR PT ACCORDINGLY
[2021-10-28] MEDS: ACETYLCYSTEINE 10% SOLN 400 MG/4 ML VIAL NEB SCH ×2 (07:26→15:40)
[2021-10-28 08:00] VITALS: BP 116/77
[2021-10-28] MEDS: PANTOPRAZOLE 40 MG/PACK PACK NG SCH (08:19)
[2021-10-28] MEDS: OLANZAPINE 2.5 MG TABLET GT SCH (08:20)
[2021-10-28] MEDS: ASCORBIC ACID 500 MG TABLET GT SCH (08:20)
[2021-10-28] MEDS: DOCUSATE SODIUM LIQ 100 MG/10 ML UDC GT SCH (08:20)
[2021-10-28] MEDS: LEVETIRACETAM SOL (5 ML) 100 MG/ML UDC GT SCH (08:20)
[2021-10-28] MEDS: ZINC SULFATE 220 MG CAPSULE PO SCH (08:20)
[2021-10-28] MEDS: THIAMINE HCL 100 MG TABLET GT SCH (08:20)
[2021-10-28] MEDS: FERROUS SULFATE UDC 300 MG/5 ML UDC GT SCH (08:20)
[2021-10-28] MEDS: MULTIVITAMINS,THERAGRAN 1 UDTAB TABLET GT SCH (08:20)
[2021-10-28] MEDS: PYRIDOXINE HCL 50 MG TABLET PO SCH (08:21)
[2021-10-28] MEDS: ISONIAZID (300 MG) 300 MG TABLET GT SCH (08:21)
[2021-10-28] MEDS: DAKINS QUARTER STRENGTH (0.125%) 480 ML BOTTLE TOP SCH (08:22)
[2021-10-28] MEDS: Z GUARD REMEDY 4 OZ OINT TP SCH (08:23)
[2021-10-28] MEDS: PROSOURCE / PROSTAT (PYXIS) 30 ML UDC GT SCH (08:25)
[2021-10-28] MEDS: THERAHONEY GEL 1.5 OZ TUBE TP SCH (08:27)
[2021-10-28 11:49] VITALS: BP 111/70
--- NOTE | 2021-10-28 12:40 | NUR ---
RESIDENT NOTED WITH GURGLING COUGH, PRN SUCTIONING DONE, CLEAR SECRETIONS NOTED. AFTER SUCTIONING RESIDENT HAS NO S/S OF SOB OR RESPIRATORY DISTRESS. WILL CONTINUE TO MONITOR.
--- NOTE | 2021-10-28 16:45 | NUR ---
DRAW STRING KNOTTER NOTES PATIENT AWAKE, ALERT, VERBALLY RESPONSIVE, NO S/S OF SOB OR DISCOMFORT. PATIENT ON 2LPM O2 VIA NASAL CANNULA AND STABLE. PATIENT WAS DISCHARGED @1645 VIA AMBULANCE ACCOMPANIED BY [facility] TO [facility] VS STABLE AND WITHIN NORMAL LIMITS, GTUBE INTACT AND PATENT, LAURA PICCLINE INTACT AND PATENT. REPORT GIVEN TO GAY MCKINNON PATIENT HAS NO BELONGINGS. WOUND TREATMENT AND DRESSING CHANGES DONE, PICTURES TAKEN. LEFT IN STABLE CONDITION, DISCHARGE INSTRUCTIONS GIVEN AND TO FOLLOW-UP WITH
== END 2021-10-28 17:00 | DRG 720 ==
LOC: ER 19:15 → ICU 20:55 → TELE1 10-21 18:25 → ICU 10-22 08:58 → TELE 10-26 10:03
PROVIDERS: ADMIT Nurse Practitioner Acute Care
PROC: 5A1945Z Respiratory Ventilation, 24-96 Consecutive Hours (ICD-10-PCS; principal; 2021-10-12)
PROC: 0BH18EZ Insertion of Endotracheal Airway into Trachea, Via Natural or Artificial Opening Endoscopic (ICD-10-PCS; 2021-10-12)
PROC: 02HV33Z Insertion of Infusion Device into Superior Vena Cava, Percutaneous Approach (ICD-10-PCS; 2021-10-13)
PROC: B548ZZA Ultrasonography of Superior Vena Cava, Guidance (ICD-10-PCS; 2021-10-13)
DX: A41.9 Sepsis, unspecified organism (principal); J96.01 Acute respiratory failure with hypoxia; N17.0 Acute kidney failure with tubular necrosis; J69.0 Pneumonitis due to inhalation of food and vomit; R65.21 Severe sepsis with septic shock; E44.0 Moderate protein-calorie malnutrition; R53.2 Functional quadriplegia; E44.1 Mild protein-calorie malnutrition; L89.896 Pressure-induced deep tissue damage of other site; D68.59 Other primary thrombophilia; E86.1 Hypovolemia; E87.0 Hyperosmolality and hypernatremia; I69.354 Hemiplegia and hemiparesis following cerebral infarction affecting left non-dominant side; I11.0 Hypertensive heart disease with heart failure; I50.9 Heart failure, unspecified; Z95.2 Presence of prosthetic heart valve; Z93.1 Gastrostomy status; Z90.5 Acquired absence of kidney; Z79.51 Long term (current) use of inhaled steroids; Z79.01 Long term (current) use of anticoagulants; Z79.899 Other long term (current) drug therapy; D63.8 Anemia in other chronic diseases classified elsewhere; E88.09 Other disorders of plasma-protein metabolism, not elsewhere classified; E86.0 Dehydration; Y95 Nosocomial condition; R13.10 Dysphagia, unspecified; E87.6 Hypokalemia; L89.891 Pressure ulcer of other site, stage 1; M62.462 Contracture of muscle, left lower leg; M62.461 Contracture of muscle, right lower leg
CPT/HCPCS: 31720; 36415; 36600; 71045-TC; 80048-TC; 80053-TC; 80061-TC; 80076-TC; 80202-TC; 81001; 82533; 82803-TC; 83605-TC; 83735-TC; 83880; 84100-TC; 84478-TC; 84484-TC; 85025-TC; 85730-TC; 87040-TC; 87070-TC; 87081-TC; 87086-TC; 92526; 92611-TC; 93307-TC; 94002-TC; 94003-TC; 94640-TC; 94760-TC; 94799-TC; 99082-TC; A4624; A6253; A6403; C9113; C9803; G0378; J0692; J1650; J1720; J1953; J2543; J3370; J3480; J3490; J7030; J7040; J7050; J7060